=== PATIENT | female | born 1970 | race Caucasian/White ===

== ENCOUNTER 2023-03-06 22:46 | Observation (INO) ==
[2023-03-06] MEDS ORDERED: KETOROLAC TROMETHAMINE 15 MG/ML VIAL IV STA (23:03)
[2023-03-06] MEDS ORDERED: SODIUM CHLORIDE 0.9% 500 ML IV STA (23:03)
[2023-03-06] MEDS ORDERED: ONDANSETRON INJ 2 MG/ML 2 ML VIAL IV STA (23:03)
[2023-03-06 23:18] LABS: Appearance Urine Cloudy (Clear); Bacteria Urine Automated Negative (Negative); Basophils # (auto) 0.02 K/uL (0-0.2); Basophils % (auto) 0.2 %; Blood Urine 3+ (Negative); Color Urine Dark Yellow; Eosinophils # (auto) 0.01 K/uL (0-0.50); Eosinophils % (auto) 0.1 %; Epithelial Cell Urine Auto >30 /lpf (0-5); Glucose Urine UA Negative (Negative); Hematocrit (blood only) 39.4 % (37.0-47.0); Hemoglobin 13.7 g/dl (12.0-16.0); Immature Granulocytes # (auto) 0.03 K/uL (0.01-0.20); Immature Granulocytes % (auto) 0.3 %; Ketones Urine Trace (Negative); Leukocyte Esterase Urine 1+ (Negative); Lymphocytes # (auto) 1.74 K/uL (1.2-3.4); Lymphocytes % (auto) 15.1 %; Mean Corpuscular Hemoglobin 29.3 pg (25.0-34.0); Mean Corpuscular Hgb Conc 34.8 g/dL (32.0-36.0); Mean Corpuscular Volume 84.2 fL (80.0-100.0); Mean Platelet Volume 10.2 fL (9.4-12.4); Monocytes # (auto) 0.37 K/uL (0.11-0.59); Monocytes % (auto) 3.2 %; Neutrophils # (auto) 9.37 K/uL (1.40-6.50); Neutrophils % (auto) 81.1 %; Nitrite Urine Positive (Negative); Platelet Count 372 K/uL (130-400); Protein Urine 1+ (Negative); RDW Coefficient of Variation 12.9 % (11.5-14.5); RDW Standard Deviation 39.8 fL (36.4-46.3); Red Blood Count 4.68 M/uL (4.20-5.40); Specific Gravity Urine 1.018 (1.000-1.030); Urobilinogen Urine Negative (Negative); White Blood Count 11.54 K/ul (4.8-10.8); pH Urine 5.5 (4.5-7.5)
[2023-03-06 23:36] LABS: Albumin Level 4.3 gm/dl (3.4-5.0); BUN Creatinine Ratio 13.2 (10-20); Bilirubin,Total 0.8 mg/dl (0.2-1.0); Calcium 9.2 mg/dl (8.6-10.3); Creatinine Clr Calc Pharmacy 80.8 ml/min; Est GFR (African American) 84.7 ml/min; Est GFR (Non-African American) 73.1 ml/min; Globulin 4.4 gm/dl (2.5-4.0); Potassium 3.9 mmol/L (3.5-5.1); Total Protein 8.7 gm/dl (6.0-8.3)
[2023-03-06 23:37] LABS: Bilirubin Urine 3+ (Negative)
[2023-03-06 23:51] LABS: RBC Urine Automated >30 /hpf (0-4)
[2023-03-07] MEDS ORDERED: KETOROLAC TROMETHAMINE 15 MG/ML VIAL IV STA (00:59)
[2023-03-07] MEDS ORDERED: MoRPHine SULFATE 4 MG/ML 1 ML CARP\\VIAL IV STA (00:59)
[2023-03-07] MEDS ORDERED: SODIUM CHLORIDE 0.9% 1000ML 1,000 ML IV ONE (00:59)
[2023-03-07] MEDS ORDERED: ONDANSETRON INJ 2 MG/ML 2 ML VIAL IV STA (01:00)
--- NOTE | 2023-03-07 01:28 | CT Scan Report ---
Exam(s): CT ABDOMEN + PELVIS Without Contrast EXAM: CT Abdomen and Pelvis Without Intravenous Contrast CLINICAL HISTORY: Reason for exam: flank pain. TECHNIQUE: Axial computed tomography images of the abdomen and pelvis without intravenous contrast. CTDI is 8.11 mGy and DLP is 455.3 mGy-cm. Automated exposure control was utilized for the study. A dose lowering technique was utilized adhering to the principles of ALARA. COMPARISON: Dated 02/04/23 FINDINGS: Lung bases: Unremarkable. No mass. No consolidation. ABDOMEN: Liver: Unremarkable. Gallbladder and bile ducts: The patient is status post cholecystectomy. No ductal dilation. Pancreas: Unremarkable. No ductal dilation. Spleen: Unremarkable. No splenomegaly. Adrenals: Unremarkable. No mass. Kidneys and ureters: There is moderate right hydroureteronephrosis with multiple right-sided ureteral calculi including a 6 mm right mid ureteral calculus (image 52 series 2). There is a small calcification adjacent to the right UVJ which may reflect a small stone (image 89 series 2). There are additional bilateral intrarenal calculi. Stomach and bowel: The patient is status post bowel resection. No obstruction. No mucosal thickening. PELVIS: Appendix: No findings to suggest acute appendicitis. Bladder: Unremarkable. No stones. Reproductive: Unremarkable as visualized. ABDOMEN and PELVIS: Intraperitoneal space: Unremarkable. No free air. No significant fluid collection. Bones/joints: There are degenerative changes of the thoracolumbar spine. No acute fracture. No dislocation. Soft tissues: Unremarkable. Vasculature: Unremarkable. No abdominal aortic aneurysm. Lymph nodes: Unremarkable. No enlarged lymph nodes. IMPRESSION: Moderate right hydroureteronephrosis with multiple right-sided ureteral calculi. Suspected small obstructing calculus at the right UVJ. Electronically signed by: Edmar Jones MD 03/07/23 01:26 AM
--- NOTE | 2023-03-07 02:12 | Emergency Department Note ---
Impression & Plan Hydronephrosis due to obstruction of ureter, Ureterolithiasis, Right flank pain, Status post laser lithotripsy of ureteral calculus ED Provider Note NAME: ISSAC TOVAR AGE: 52 SEX: F ARRIVES VIA: Walk-In INFORMANT: Patient ED PROVIDER(S): Stu Sandy MD CHIEF COMPLAINT: Right flank pain PLAN: Disposition: Admit MEDICAL DECISION MAKING: The patient is a pleasant 52-year-old woman with a past medical history of nephrolithiasis who presents to the emergency department via walk-in, accompanied by her for evaluation of worsening right flank pain with associated nausea and vomiting in the setting of having lithotripsy for right- sided nephrolithiasis today. She reports she has been taking her prescribed oxycodone but because of the nausea and vomiting has not been able to keep it down. She denies any fevers. She denies any cough, congestion, diarrhea. She did contact her urology office and was referred to the emergency department for pain control. Of note, the patient did arrive to emergency department during time of high volume, acuity and prolonged emergency department waiting times. Critical pathways initiated from triage. On my evaluation, the patient is uncomfortable no acute distress, afebrile with stable vital signs. She has mild right flank and right abdominal discomfort without discrete tenderness. WBC 11.5K nonspecific. H/H and platelets within normal limits. Chemistry without metabolic acidosis per electrolytes and LFTs unremarkable. UA with positive nitrates, 1+ leuk esterase and 5-10 WBCs and RBCs> [address] of the abdomen pelvis was performed demonstrated right-sided hydronephrosis with numerous ureteral stones. Upon evaluation the patient did report improvement following IV fluid hydration, APAP, Toradol, morphine and Zofran. However still with pain persisting and given the severity of her pain on arrival in the setting of numerous obstructing ureteral stones agrees with plan for admission for further symptomatic management. While patient's UA is contaminated she was ordered for ceftriaxone given presence of nitrites and in the event procedure is considered for tomorrow. Case was discussed with Dr. Vidal, [facility] hospitalist, who will evaluate the patient for admission. Triage Nursing notes reviewed and agree them. Prior/outside medical records reviewed Vital Signs: reviewed Differential diagnosis: Renal colic, UTI, appendicitis, diverticulitis, mesenteric ischemia, aortic pathology, infections, inflammatory bowel disease, PUD, biliary pathology, as well as other pathologies. ER treatment provided: See below. Diagnostics interpreted by me: ECG: None Cardiac Monitoring: An order for continuous cardiac monitoring was placed and demonstrated Laboratory studies: See below Imaging studies: See below Consultation(s): Dr. Vidal, [facility] hospitalist. HPI: The patient is a pleasant 52-year-old woman with a past medical history of nephrolithiasis who presents to the emergency department via walk-in, accompanied by her for evaluation of worsening right flank pain with associated nausea and vomiting in the setting of having lithotripsy for right- sided nephrolithiasis today. She reports she has been taking her prescribed oxycodone but because of the nausea and vomiting has not been able to keep it down. She denies any fevers. She denies any cough, congestion, diarrhea. She did contact her urology office and was referred to the emergency department for pain control. ROS: See above HPI for pertinent positives & negatives. A total of 10 systems r eviewed and were otherwise negative. VITALS:See Below PHYSICAL EXAMINATION: GENERAL: Awake, alert, uncomfortable-appearing, in no distress HENT: Normocephalic, atraumatic. Oropharynx with dry mucous membranes and otherwise unremarkable. EYES: Normal conjunctiva. Sclera non-icteric. NECK: Supple. No nuchal rigidity. FROM. No JVD. RESPIRATORY: Clear to auscultation. CARDIAC: Regular rate, normal rhythm. Extremities warm and well perfused. Pulses equal. ABDOMEN: Soft, non-distended. Mild right flank and right abdominal discomfort without discrete tenderness. No rebound or guarding. No masses. RECTAL: Deferred. MUSCULOSKELETAL: Chest examination reveals no tenderness. The back is symmetrical on inspection without obvious abnormality. There is no CVA tenderness to palpation. No joint edema. LOWER EXTREMITIES: Calves are equal size bilaterally and non-tender. No edema. No discoloration. NEURO: Normal sensorium. No sensory or motor deficits noted. SKIN: No rash or jaundice noted. Stu Sandy MD Past Med/Surg History Medical History Anemia IRON INFUSIONS>LAST ONE FALL 2021 Crohn's disease GERD (gastroesophageal reflux disease) History of COVID-19 2019>RESOLVED Hx of supraventricular tachycardia EVENT OCCURED 05/2022 (NO SURGICAL INTERVENTION NEEDED) [facility] CARDS AND [facility] Kidney stones Surgical History History of appendectomy History of bilateral tubal ligation History of bowel resection X 4 History of cardiac cath A FEW YEARS AGO>NO STENTS/[facility] History of cholecystectomy History of colonoscopy History of cystoscopy History of lithotripsy Nausea and vomiting after administration of anesthetic agent Social History Smoking Status: Never smoker Second Hand Exposure: No; Hx Alcohol Use: Yes Preferred Language: Pashto Registered Veterinary Technician Required: No Beliefs That Will Affect Care: Yarsani Yarsani Beliefs: MUSLIM Current Living Situation: Spouse Feels Safe at Home: Yes Assistive Devices: None Allergies Allergies Allergy/AdvReac Type Severity Reaction Status Date / Time morphine AdvReac Severe CAUSED Verified 03/07/23 00:33 SEVERE ANXIETY Home Meds Home Medications Medication Instructions Recorded Confirmed cetirizine 10 mg tablet (Zyrtec) 10 mg PO HS 03/04/23 03/07/23 infliximab 100 mg intravenous 100 mg IV .Q6WKS 03/04/23 03/07/23 solution (Remicade) metoprolol succinate 25 mg 25 mg PO HS 03/04/23 03/07/23 tablet,extended release 24 hr Previous Rx's Medication Instructions Recorded oxycodone 5 mg tablet 5 mg PO Q6 PRN pain #8 tabs 03/06/23 tamsulosin 0.4 mg capsule 0.4 mg PO DAILY #30 caps 03/06/23 Results & Data (ED) Vital Signs Vital Signs - 24 hr 03/06/23 22:53 03/07/23 00:15 Temperature 36.5 C Temperature Source Temporal Artery Scan Pulse Rate 86 Pulse Rate [Apical] 83 Respiratory Rate 18 18 Respiratory Effort / Characteristics Non-Labored Spontaneous Respiratory Depth Normal Respiratory Pattern Regular Blood Pressure 146/83 H Blood Pressure [Right Arm] 126/80 Blood Pressure Mean 104 Blood Pressure Mean [Right Arm] 95 Blood Pressure Position Sitting Blood Pressure Position [Right Arm] Semi-fowlers Pulse Oximetry 96 93 Oxygen Delivery Method Room Air Sepsis Recent Fever Within 48 Hours No Sepsis New/Unexplained Change in Mental Status N/A Sepsis Action Taken by Nursing No Action Required Laboratory Data Attestation: I reviewed the patient's lab results. 03/06/23 23:02 03/06/23 23:02 Lab Results 03/06/23 03/06/23 03/06/23 Range/Units 23:02 23:02 23:02 WBC 11.54 H (4.8-10.8) K/ul RBC 4.68 (4.20-5.40) M/uL Hgb 13.7 (12.0-16.0) g/dl Hct 39.4 (37.0-47.0) % MCV 84.2 (80.0-100.0) fL MCH 29.3 (25.0-34.0) pg MCHC 34.8 (32.0-36.0) g/dL RDW Std Deviation 39.8 (36.4-46.3) fL RDW Coeff of Wei 12.9 (11.5-14.5) % Plt Count 372 (130-400) K/uL MPV 10.2 (9.4-12.4) fL Immature Gran % (Auto) 0.3 % Neut % (Auto) 81.1 % Lymph % (Auto) 15.1 % [place] % (Auto) 3.2 % Eos % (Auto) 0.1 % Baso % (Auto) 0.2 % Neut # (Auto) 9.37 H (1.40-6.50) K/uL Lymph # (Auto) 1.74 (1.2-3.4) K/uL Stafford # (Auto) 0.37 (0.11-0.59) K/uL Eos # (Auto) 0.01 (0-0.50) K/uL Baso # (Auto) 0.02 (0-0.2) K/uL Immature Gran # (Auto) 0.03 (0.01-0.20) K/uL Sodium 134 L (136-145) mmol/L Potassium 3.9 (3.5-5.1) mmol/L Chloride 104 (98-107) mmol/L Carbon Dioxide 23 (21-32) mmol/L Anion Gap 7 (3-11) BUN 12 (6-23) mg/dl Creatinine 0.91 (0.6-1.2) mg/dl Est Cr Clr Drug Dosing 80.8 ml/min Est GFR ( Amer) 84.7 ml/min Est GFR (Non-Af Amer) 73.1 ml/min BUN/Creatinine Ratio 13.2 (10-20) Glucose 108 H (70-99(Fasting)) mg/dl Calcium 9.2 (8.6-10.3) mg/dl Total Bilirubin 0.8 (0.2-1.0) mg/dl AST 20 (13-39) U/L ALT 21 (7-52) U/L Alkaline Phosphatase 69 (34-104) U/L Total Protein 8.7 H (6.0-8.3) gm/dl Albumin 4.3 (3.4-5.0) gm/dl Globulin 4.4 H (2.5-4.0) gm/dl Albumin/Globulin Ratio 1.0 (0.9-2) Urine Color Dark Yellow Urine Appearance Cloudy A (Clear) Urine pH 5.5 (4.5-7.5) Ur Specific [place] 1.018 (1.000-1.030) Urine Protein 1+ H (Negative) Urine Glucose (UA) Negative (Negative) Urine Ketones Trace H (Negative) Urine Blood 3+ H (Negative) Urine Nitrite Positive A (Negative) Urine Bilirubin 3+ H (Negative) Urine Urobilinogen Negative (Negative) Ur Leukocyte Esterase 1+ H (Negative) Urine WBC (Auto) 5-10 H (0-5) /hpf Urine RBC (Auto) >30 H (0-4) /hpf U Hyaline Cast (Auto) 1-5 (0-5) /lpf U Epithel Cells (Auto) >30 H (0-5) /lpf Urine Bacteria (Auto) Negative (Negative) Urine Yeast Not Reportable Administered Medications Discontinued Medications Sodium Chloride (Nss) 500 mls @ 999 mls/hr IV .Q31M STA Stop: 03/06/23 23:33 Last Infusion: 03/07/23 00:48 Dose: 0 mls/hr Documented By: Admin: 03/07/23 00:17 Dose: 999 mls/hr Documented By: Sodium Chloride (Nss 1000ml) 1,000 mls @ 999 mls/hr IV .Q1H1M ONE Stop: 03/07/23 01:59 Last Admin: 03/07/23 01:15 Dose: 999 mls/hr Documented By: Ketorolac Tromethamine (Ketorolac Tromethamine 15 Mg/Ml Vial) 15 mg IV ONE STA Stop: 03/06/23 23:04 Last Admin: 03/06/23 23:15 Dose: Not Given Documented By: RADHA Ketorolac Tromethamine (Ketorolac Tromethamine 15 Mg/Ml Vial) 15 mg IV NOW STA Stop: 03/07/23 01:00 Last Admin: 03/07/23 01:17 Dose: 15 mg Documented By: Ondansetron HCl (Ondansetron Inj 2 Mg/Ml 2 Ml Vial) 4 mg IV NOW STA Stop: 03/06/23 23:04 Last Admin: 03/06/23 23:11 Dose: 4 mg Documented By: RADHA Ondansetron HCl (Ondansetron Inj 2 Mg/Ml 2 Ml Vial) 4 mg IV NOW STA Stop: 03/07/23 01:01 Last Admin: 03/07/23 01:18 Dose: 4 mg Documented By: Imaging Data Radiologist's Impression: Abdomen/Pelvis CT 03/06/23 23:14 Exam(s): CT ABDOMEN + PELVIS Without Contrast EXAM: CT Abdomen and Pelvis Without Intravenous Contrast CLINICAL HISTORY: Reason for exam: flank pain. TECHNIQUE: Axial computed tomography images of the abdomen and pelvis without intravenous contrast. CTDI is 8.11 mGy and DLP is 455.3 mGy-cm. Automated exposure control was utilized for the study. A dose lowering technique was utilized adhering to the principles of ALARA. COMPARISON: Dated 02/04/23 FINDINGS: Lung bases: Unremarkable. No mass. No consolidation. ABDOMEN: Liver: Unremarkable. Gallbladder and bile ducts: The patient is status post cholecystectomy. No ductal dilation. Pancreas: Unremarkable. No ductal dilation. Spleen: Unremarkable. No splenomegaly. Adrenals: Unremarkable. No mass. Kidneys and ureters: There is moderate right hydroureteronephrosis with multiple right-sided ureteral calculi including a 6 mm right mid ureteral calculus (image 52 series 2). There is a small calcification adjacent to the right UVJ which may reflect a small stone (image 89 series 2). There are additional bilateral intrarenal calculi. Stomach and bowel: The patient is status post bowel resection. No obstruction. No mucosal thickening. PELVIS: Appendix: No findings to suggest acute appendicitis. Bladder: Unremarkable. No stones. Reproductive: Unremarkable as visualized. ABDOMEN and PELVIS: Intraperitoneal space: Unremarkable. No free air. No significant fluid collection. Bones/joints: There are degenerative changes of the thoracolumbar spine. No acute fracture. No dislocation. Soft tissues: Unremarkable. Vasculature: Unremarkable. No abdominal aortic aneurysm. Lymph nodes: Unremarkable. No enlarged lymph nodes. IMPRESSION: Moderate right hydroureteronephrosis with multiple right-sided ureteral calculi. Suspected small obstructing calculus at the right UVJ. Electronically signed by: Edmar Jones MD 03/07/23 01:26 AM Discharge Plan Visit Data Chief Complaint: Flank Pain Stated Complaint: R SIDE ABDOMINAL PAIN ED Provider: Stu Sandy Discharge Problem: Hydronephrosis due to obstruction of ureter, Ureterolithiasis, Right flank pain, Status post laser lithotripsy of ureteral calculus Forms Stand Alone Forms: [facility] [email or web address] Prescriptions Prescriptions: No Action cetirizine [Zyrtec] 10 mg Tablet 10 mg PO HS infliximab [Remicade] 100 mg Recon Soln 100 mg IV .Q6WKS Patient Comments: EVERY 6 WEEKS metoprolol succinate 25 mg Tablet Extended Release 24 Hr 25 mg PO HS tamsulosin 0.4 mg capsule 0.4 mg PO DAILY Qty: 30 0RF oxycodone 5 mg tablet 5 mg PO Q6 PRN (Reason: pain) Qty: 8 0RF Referrals Referrals: Марина Cruz [Primary Care Provider] -
[2023-03-07] MEDS ORDERED: MoRPHine SULFATE 4 MG/ML 1 ML CARP\\VIAL IV PRN (02:18)
[2023-03-07] MEDS ORDERED: MoRPHine SULFATE 2 MG/ML CARP IV PRN (02:18)
[2023-03-07] MEDS ORDERED: ONDANSETRON INJ 2 MG/ML 2 ML VIAL IV PRN ×2 (02:18→04:35)
[2023-03-07] MEDS ORDERED: cefTRIAXone SODIUM 2,000 MG/70 ML BAG IV STA (02:20)
[2023-03-07] MEDS ORDERED: TAMSULOSIN HCL 0.4 MG CAP PO ONE (02:20)
[2023-03-07] MEDS ORDERED: SODIUM CHLORIDE 0.9% 1000ML 1,000 ML IV SCH ×2 (02:30→05:15)
[2023-03-07] MEDS ORDERED: LACTATED RINGER'S 1,000 ML IV SCH (02:30)
--- NOTE | 2023-03-07 03:40 | History & Physical Report ---
Date of Service March 07, 2023 Assessment & Plan (1) Hydronephrosis due to obstruction of ureter: Plan: 52yo female with history of Crohn's disease, nephrolithiasis s/p right sided ESWL performed 03/06/23 presenting with intractable nausea, pain and PO intolerance. Patient unable to control her pain at home with PO Oxycodone. CT as above with moderate right sided hydroureteronephrosis with multiple right- sided ureteral calculi. Suspected small obstructing calculus at the right UVJ. UA with LE, no bacteria. Nitrites positive as well. -Admit to medical -Dilaudid PRN -Toradol PRN -Zofran PRN -Continue IVF -Strain urine, continue Flomax -Ceftriaxone 2gm IV daily -Urology consultation appreciated History of Present Illness Chief Complaint: Right flank pain Primary Care Provider: Марина Cruz Jolly Martinez is a pleasant 52yo female with history of Crohn's Disease, kidney stones presenting with ongoing right flank pain, nausea and vomiting. Patient with known right sided nephrolithiasis. She had right extracorporeal shock wave lithotripsy performed on 03/06/[address] Carlisle. The procedure was well tolerated. Patient was discharged home with Flomax and Oxycodone. She reports persistent right flank pain since having the procedure. Also with nausea and non-bloody emesis. She took 3 oxycodone tablets at home with no relief. Patient contacted Urology demonstrator sales and was instructed to come to the ER for continued pain control due to PO intolerance. In the ER she is afebrile, HD stable. Significant pain on arrival. She was given doses of Toradol and Zofran as well as IV fluids. Pain much improved during my encounter. She reports 3/10 discomfort. Nausea has resolved. ER Course: Zofran 4mg IV x 2 Toradol 15mg IV NSS Flomax Ceftriaxone Allergies Allergy/AdvReac Type Severity Reaction Status Date / Time morphine AdvReac Severe CAUSED Verified 03/07/23 00:33 SEVERE ANXIETY Home Medications Medication Instructions Recorded Confirmed Type cetirizine 10 mg tablet (Zyrtec) 10 mg PO HS 03/04/23 03/07/23 History infliximab 100 mg intravenous 100 mg IV .Q6WKS 03/04/23 03/07/23 History solution (Remicade) metoprolol succinate 25 mg 25 mg PO HS 03/04/23 03/07/23 History tablet,extended release 24 hr oxycodone 5 mg tablet 5 mg PO Q6 PRN pain #8 tabs 03/06/23 03/07/23 Rx tamsulosin 0.4 mg capsule 0.4 mg PO DAILY #30 caps 03/06/23 03/07/23 Rx Past Med/Surg History Medical History Anemia IRON INFUSIONS>LAST ONE FALL 2021 Crohn's disease GERD (gastroesophageal reflux disease) History of COVID-19 2019>RESOLVED Hx of supraventricular tachycardia EVENT OCCURED 05/2022 (NO SURGICAL INTERVENTION NEEDED) [facility] Kidney stones Surgical History History of appendectomy History of bilateral tubal ligation History of bowel resection X 4 History of cardiac cath A FEW YEARS AGO>NO STENTS/[facility] [place] History of cholecystectomy History of colonoscopy History of cystoscopy History of lithotripsy Nausea and vomiting after administration of anesthetic agent Social History Smoking Status: Never smoker Second Hand Exposure: No; Hx Alcohol Use: Yes Preferred Language: Nauruan Interface Analyst Required: No Beliefs That Will Affect Care: Mu-Ism Mu-Ism Beliefs: EPISCOPALIAN Current Living Situation: Spouse Feels Safe at Home: Yes Assistive Devices: None Review of Systems Review of Systems: All systems reviewed & are unremarkable except as noted in HPI & below Physical Exam Physical Exam: General: patient resting comfortably, NAD, non-toxic in appearance, AA&O x 4 Skin: warm, dry, intact, no rashes or lesions HEENT: NC/AT, PERRL, EOMI, anicteric sclera, conjunctiva without injection, external ear normal to inspection and nontender, nares patent, moist mucus membranes, dentition intact, no oropharyngeal lesions, neck supple, trachea midline, no LAD, no thyromegaly, no JVD Heart: +S1/S2, regular, no m/r/g Lungs: equal air entry bilaterally, no rales/rhonchi/wheezes Abd: +BS, soft, NT/ND, no masses/organomegaly/ascites, ongoing right flank pain and CVA tenderness Ext: warm, 2+ pulses in UE/LE bilaterally, no clubbing/cyanosis or edema Neuro: nonfocal, patient AA&O x 4, speech intact, no facial droop, moving all extremities on command with equal strength 5/5 Results & Data Results & Data Vital Signs (Past 12 Hours) Vital Signs Temp Pulse Pulse Resp BP BP Pulse Ox 03/07/23 03:08 77 18 120/71 95 03/07/23 00:15 83 18 126/80 93 03/06/23 22:53 36.5 C 86 18 146/83 H 96 O2 Del Method 03/07/23 03:08 Room Air 03/07/23 00:15 03/06/23 22:53 Room Air Laboratory Results Laboratory Results WBC 11.54 K/ul (4.8-10.8) H 03/06/23 23:02 RBC 4.68 M/uL (4.20-5.40) 03/06/23 23:02 Hgb 13.7 g/dl (12.0-16.0) 03/06/23 23:02 Hct 39.4 % (37.0-47.0) 03/06/23 23:02 MCV 84.2 fL (80.0-100.0) 03/06/23 23:02 MCH 29.3 pg (25.0-34.0) 03/06/23 23:02 MCHC 34.8 g/dL (32.0-36.0) 03/06/23 23:02 RDW Std Deviation 39.8 fL (36.4-46.3) 03/06/23 23:02 RDW Coeff of Wei 12.9 % (11.5-14.5) 03/06/23 23: Plt Count 372 K/uL (130-400) 03/06/23 23:02 MPV 10.2 fL (9.4-12.4) 03/06/23 23:02 Immature Gran % (Auto) 0.3 % 03/06/23 23:02 Neut % (Auto) 81.1 % 03/06/23 23:02 Lymph % (Auto) 15.1 % 03/06/23 23:02 [place] % (Auto) 3.2 % 03/06/23 23:02 Eos % (Auto) 0.1 % 03/06/23 23:02 Baso % (Auto) 0.2 % 03/06/23 23:02 Neut # (Auto) 9.37 K/uL (1.40-6.50) H 03/06/23 23:02 Lymph # (Auto) 1.74 K/uL (1.2-3.4) 03/06/23 23:02 [place] # (Auto) 0.37 K/uL (0.11-0.59) 03/06/23 23:02 Eos # (Auto) 0.01 K/uL (0-0.50) 03/06/23 23:02 Baso # (Auto) 0.02 K/uL (0-0.2) 03/06/23 23:02 Immature Gran # (Auto) 0.03 K/uL (0.01-0.20) 03/06/23 23:02 Sodium 134 mmol/L (136-145) L 03/06/23 23:02 Potassium 3.9 mmol/L (3.5-5.1) 03/06/23 23:02 Chloride 104 mmol/L (98-107) 03/06/23 23:02 Carbon Dioxide 23 mmol/L (21-32) 03/06/23 23:02 Anion Gap 7 (3-11) 03/06/23 23:02 BUN 12 mg/dl (6-23) 03/06/23 23:02 Creatinine 0.91 mg/dl (0.6-1.2) 03/06/23 23:02 Est Cr Clr Drug Dosing 80.8 ml/min 03/06/23 23:02 Est GFR ( Amer) 84.7 ml/min 03/06/23 23:02 Est GFR (Non-Af Amer) 73.1 ml/min 03/06/23 23:02 BUN/Creatinine Ratio 13.2 (10-20) 03/06/23 23:02 Glucose 108 mg/dl (70-99(Fasting)) H 03/06/23 23:02 Calcium 9.2 mg/dl (8.6-10.3) 03/06/23 23:02 Total Bilirubin 0.8 mg/dl (0.2-1.0) 03/06/23 23:02 AST 20 U/L (13-39) 03/06/23 23:02 ALT 21 U/L (7-52) 03/06/23 23:02 Alkaline Phosphatase 69 U/L (34-104) 03/06/23 23:02 Total Protein 8.7 gm/dl (6.0-8.3) H 03/06/23 23:02 Albumin 4.3 gm/dl (3.4-5.0) 03/06/23 23:02 Globulin 4.4 gm/dl (2.5-4.0) H 03/06/23 23:02 Albumin/Globulin Ratio 1.0 (0.9-2) 03/06/23 23:02 Urine Color Dark Yellow 03/06/23 23:02 Urine Appearance Cloudy (Clear) A 03/06/23 23:02 Urine pH 5.5 (4.5-7.5) 03/06/23 23:02 Ur Specific [place] 1.018 (1.000-1.030) 03/06/23 23:02 Urine Protein 1+ (Negative) H 03/06/23 23:02 Urine Glucose (UA) Negative (Negative) 03/06/23 23:02 Urine Ketones Trace (Negative) H 03/06/23 23:02 Urine Blood 3+ (Negative) H 03/06/23 23:02 Urine Nitrite Positive (Negative) A 03/06/23 23:02 Urine Bilirubin 3+ (Negative) H 03/06/23 23:02 Urine Urobilinogen Negative (Negative) 03/06/23 23:02 Ur Leukocyte Esterase 1+ (Negative) H 03/06/23 23:02 Urine WBC (Auto) 5-10 /hpf (0-5) H 03/06/23 23:02 Urine RBC (Auto) >30 /hpf (0-4) H 03/06/23 23:02 U Hyaline Cast (Auto) 1-5 /lpf (0-5) 03/06/23 23:02 U Epithel Cells (Auto) >30 /lpf (0-5) H 03/06/23 23:02 Urine Bacteria (Auto) Negative (Negative) 03/06/23 23:02 Urine Yeast Not Reportable 03/06/23 23:02 SARS-CoV-2, RNA, NAAT NEGATIVE (NEGATIVE) 03/07/23 03:10 Impressions Abdomen/Pelvis CT 03/06/23 23:14 Exam(s): CT ABDOMEN + PELVIS Without Contrast EXAM: CT Abdomen and Pelvis Without Intravenous Contrast CLINICAL HISTORY: Reason for exam: flank pain. TECHNIQUE: Axial computed tomography images of the abdomen and pelvis without intravenous contrast. CTDI is 8.11 mGy and DLP is 455.3 mGy-cm. Automated exposure control was utilized for the study. A dose lowering technique was utilized adhering to the principles of ALARA. COMPARISON: Dated 02/04/23 FINDINGS: Lung bases: Unremarkable. No mass. No consolidation. ABDOMEN: Liver: Unremarkable. Gallbladder and bile ducts: The patient is status post cholecystectomy. No ductal dilation. Pancreas: Unremarkable. No ductal dilation. Spleen: Unremarkable. No splenomegaly. Adrenals: Unremarkable. No mass. Kidneys and ureters: There is moderate right hydroureteronephrosis with multiple right-sided ureteral calculi including a 6 mm right mid ureteral calculus (image 52 series 2). There is a small calcification adjacent to the right UVJ which may reflect a small stone (image 89 series 2). There are additional bilateral intrarenal calculi. Stomach and bowel: The patient is status post bowel resection. No obstruction. No mucosal thickening. PELVIS: Appendix: No findings to suggest acute appendicitis. Bladder: Unremarkable. No stones. Reproductive: Unremarkable as visualized. ABDOMEN and PELVIS: Intraperitoneal space: Unremarkable. No free air. No significant fluid collection. Bones/joints: There are degenerative changes of the thoracolumbar spine. No acute fracture. No dislocation. Soft tissues: Unremarkable. Vasculature: Unremarkable. No abdominal aortic aneurysm. Lymph nodes: Unremarkable. No enlarged lymph nodes. IMPRESSION: Moderate right hydroureteronephrosis with multiple right-sided ureteral calculi. Suspected small obstructing calculus at the right UVJ. Electronically signed by: Edmar Jones MD 03/07/23 01:26 AM Code Status & VTE Plan VTE Prophylaxis Plan VTE Prophylaxis will be ordered: Yes PG Care Time/CCT Total # of Minutes Spent Total Time Spent with Patient: Total time spent is greater than 50% in coordination of care (as documented) at patient's floor/unit and/or counseling patient: Coding Level of Care Code 26147 INT INP/OBS CARE 2/55MIN Diagnoses Hydronephrosis due to obstruction of ureter N13.1
[2023-03-07] MEDS ORDERED: POLYETHYLENE (MIRALAX) 17 GM PACK PO PRN (04:35)
[2023-03-07] MEDS ORDERED: DOCUSATE SODIUM 100 MG CAP PO PRN (04:35)
[2023-03-07] MEDS ORDERED: ACETAMINOPHEN 325 MG TAB PO PRN (04:35)
[2023-03-07] MEDS ORDERED: HYDROmorphone INJ 0.5 MG/0.5 ML SYR IV PRN ×2 (04:35)
[2023-03-07] MEDS ORDERED: KETOROLAC TROMETHAMINE 15 MG/ML VIAL IV PRN (04:35)
--- NOTE | 2023-03-07 07:18 | Urology Consultation ---
Date of Consultation March 07, 2023 Assessment & Plan (1) Hydronephrosis due to obstruction of ureter: (2) Ureterolithiasis: (3) Right flank pain: Plan 52 yo F who is s/p right ESWL on 03/06/23. She developed several right obstructing ureteral caculi and presented to the hospital due to flank pain and nausea/vomiting. Recommended we proceed to the OR for cystoscopy, right retrograde pyelogram and right ureteral stent placement due to obstructing stones, intractable pain and nausea and urinalysis concerning for infection. Patient's pain is improved and was hoping to avoid a stent placement but I explained that given her clinical picture a stent is the safest thing to do Please keep patient NPO. OR would likely not be available until after 12 PM Continue antibiotics Risks and benefits discussed and consent obtained. Patient marked If patient is doing well postoperatively, she could be discharged home later today History of Present Illness Reason for Consultation: Right obstructing ureteral calculi Attending Physician: Jenifer Vidal DO History of Present Illness 52 yo F who is s/p right ESWL for stones on 03/06/23 who presented to the ED with right flank pain and nausea. She was afebrile with stable vitals. Labs showed a WBC of 11, Cr of 0.91, and a UA concerning for infection. CT scan showed right hydronephrosis with several right proximal obstructing ureteral calculi. She was admitted to the medicine service and started on ceftriaxone. Allergies Allergy/AdvReac Type Severity Reaction Status Date / Time morphine AdvReac Severe CAUSED Verified 03/07/23 00:33 SEVERE ANXIETY Home Medications Medication Instructions Recorded Confirmed Type cetirizine 10 mg tablet (Zyrtec) 10 mg PO HS 03/04/23 03/07/23 History infliximab 100 mg intravenous 100 mg IV .Q6WKS 03/04/23 03/07/23 History solution (Remicade) metoprolol succinate 25 mg 25 mg PO HS 03/04/23 03/07/23 History tablet,extended release 24 hr oxycodone 5 mg tablet 5 mg PO Q6 PRN pain #8 tabs 03/06/23 03/07/23 Rx tamsulosin 0.4 mg capsule 0.4 mg PO DAILY #30 caps 03/06/23 03/07/23 Rx Patient History Medical History Anemia IRON INFUSIONS>LAST ONE FALL 2021 Crohn's disease GERD (gastroesophageal reflux disease) History of COVID-19 2019>RESOLVED Hx of supraventricular tachycardia EVENT OCCURED 05/2022 (NO SURGICAL INTERVENTION NEEDED) [facility] AND [facility] Kidney stones Surgical History History of appendectomy History of bilateral tubal ligation History of bowel resection X 4 History of cardiac cath A FEW YEARS AGO>NO STENTS/[facility] History of cholecystectomy History of colonoscopy History of cystoscopy History of lithotripsy Nausea and vomiting after administration of anesthetic agent Social History Smoking Status: Never smoker Second Hand Exposure: No; Hx Alcohol Use: Yes Alcohol type: beer, wine and hard liquor Hx Substance Use: No Preferred Language: Cypriot Communication Ability: Effective General Cleaner Required: No Beliefs That Will Affect Care: None Current Living Situation: Spouse Feels Safe at Home: Yes Assistive Devices: None Review of Systems Review of Systems: 14 point review of systems negative outside of what is listed above in HPI Physical Exam Physical Exam: General: Alert and oriented, no acute distress HEENT: Normocephalic, mucous membranes moist Pulmonary: Nonlabored respirations Abdomen: Nondistended Extremities: Moves all 4 spontaneously Neuro: No gross deficits Skin: Warm, dry, no rashes noted Results & Data Vital Signs (Past 12 Hours) Vital Signs Temp Pulse Pulse Pulse Resp BP BP 03/07/23 07:08 36.3 C L 84 16 106/68 03/07/23 04:30 36.6 C 84 16 114/73 03/07/23 04:17 03/07/23 03:08 77 18 120/71 03/07/23 00:15 83 18 126/80 03/06/23 22:53 36.5 C 86 18 146/83 H Pulse Ox O2 Del Method 03/07/23 07:08 94 Room Air 03/07/23 04:30 93 Room Air 03/07/23 04:17 Room Air 03/07/23 03:08 95 Room Air 03/07/23 00:15 93 03/06/23 22:53 96 Room Air PG Care Time/CCT Total # of Minutes Spent Total Time Spent with Patient: Total time spent is greater than 50% in coordination of care (as documented) at patient's floor/unit and/or counseling patient: Coding Level of Care Code 43599 IN/OBS CONSULT LVL 3,45M Diagnoses Hydronephrosis due to obstruction of ureter N13.1 Ureterolithiasis N20.1 Right flank pain R10.9
[2023-03-07] MEDS ORDERED: ATROPINE SULFATE 0.1 MG/ML 10ML SYR IV PRN (12:15)
[2023-03-07] MEDS ORDERED: fentaNYL citrate PF 100 MCG/2 ML VIAL IV PRN (12:15)
[2023-03-07] MEDS ORDERED: PROMETHAZINE HCL 6.25 MG in SODIUM CHLORIDE 0.9% 50 ML IV PRN (12:15)
--- NOTE | 2023-03-07 12:15 | Anesthesiology Consultation ---
Date of Service March 07, 2023 Assessment & Plan (1) Encounter for pre-operative examination: Chart Review Chart Review: Acceptable Risk for Surgery History Surgery Operation Date: 03/07/23 12:00 Proposed Procedures p Cystoscopy Retrograde(Right) - Domenic Gill MD Height/Weight Height: 5 ft 7 in Weight: 82.8 kg Allergies Allergy/AdvReac Type Severity Reaction Status Date / Time morphine AdvReac Severe CAUSED Verified 03/07/23 00:33 SEVERE ANXIETY Medications Home Medications Medication Instructions Recorded Confirmed Last Taken cetirizine 10 mg tablet (Zyrtec) 10 mg PO HS 03/04/23 03/07/23 03/06/23 infliximab 100 mg intravenous 100 mg IV .Q6WKS 03/04/23 03/07/23 Unknown solution (Remicade) metoprolol succinate 25 mg 25 mg PO HS 03/04/23 03/07/23 03/06/23 tablet,extended release 24 hr oxycodone 5 mg tablet 5 mg PO Q6 PRN pain #8 tabs 03/06/23 03/07/23 Unknown tamsulosin 0.4 mg capsule 0.4 mg PO DAILY #30 caps 03/06/23 03/07/23 03/06/23 Active Medications Generic Name Dose Route Start Last Admin Trade Name Freq PRN Reason Stop Dose Admin Sodium Chloride 1,000 mls @ 125 mls/hr 03/07/23 05:15 03/07/23 05:41 Nss 1000ml IV 03/07/23 21:14 125 mls/hr .Q8H LOR Administration Past Medical History Medical History Anemia IRON INFUSIONS>LAST ONE FALL 2021 Crohn's disease GERD (gastroesophageal reflux disease) History of COVID-2019>RESOLVED Hx of supraventricular tachycardia EVENT OCCURED 05/2022 (NO SURGICAL INTERVENTION NEEDED) [facility] Kidney stones Past Surgical History Surgical History History of appendectomy History of bilateral tubal ligation History of bowel resection X 4 History of cardiac cath A FEW YEARS AGO>NO STENTS/[facility] History of cholecystectomy History of colonoscopy History of cystoscopy History of lithotripsy Nausea and vomiting after administration of anesthetic agent Social History Smoking Status: Never smoker Hx Alcohol Use: Yes Alcohol type: beer, wine and hard liquor alcohol intake frequency: a few times a month Hx Substance Use: No substance use type: does not use Physical Exam Vital Signs Last Vital Signs Temp 36.3 C L 03/07/23 07:08 Pulse 84 03/07/23 07:08 Resp 16 03/07/23 07:08 BP 106/68 03/07/23 07:08 Pulse Ox 94 03/07/23 07:08 O2 Del Method Room Air 03/07/23 10:40 Testing Laboratory Results 03/06/23 23:02 03/06/23 23:02 Urine Color Dark Yellow 03/06/23 23:02 Urine Appearance Cloudy (Clear) A 03/06/23 23:02 Urine pH 5.5 (4.5-7.5) 03/06/23 23:02 Ur Specific [place] 1.018 (1.000-1.030) 03/06/23 23:02 Urine Protein 1+ (Negative) H 03/06/23 23:02 Urine Glucose (UA) Negative (Negative) 03/06/23 23:02 Urine Ketones Trace (Negative) H 03/06/23 23:02 Urine Nitrite Positive (Negative) A 03/06/23 23:02 Ur Leukocyte Esterase 1+ (Negative) H 03/06/23 23:02 Urine WBC (Auto) 5-10 /hpf (0-5) H 03/06/23 23:02 Urine RBC (Auto) >30 /hpf (0-4) H 03/06/23 23:02 U Hyaline Cast (Auto) 1-5 /lpf (0-5) 03/06/23 23:02 U Epithel Cells (Auto) >30 /lpf (0-5) H 03/06/23 23:02 Urine Bacteria (Auto) Negative (Negative) 03/06/23 23:02
[2023-03-07] MEDS ORDERED: MIDAZOLAM HCL 1 MG/ML 2ML VIAL ONE (12:54)
[2023-03-07] MEDS ORDERED: fentaNYL citrate PF 100 MCG/2 ML VIAL ONE (12:55)
[2023-03-07] MEDS ORDERED: LIDOCAINE 2% MPF LOCAL 5 ML VIAL ONE (12:58)
[2023-03-07] MEDS ORDERED: ONDANSETRON INJ 2 MG/ML 2 ML VIAL ONE (12:59)
[2023-03-07] MEDS ORDERED: PROPOFOL IV EMULSION 10 MG/ML 20 ML VIAL IV ONE (12:59)
[2023-03-07] MEDS ORDERED: DEXAMETHASONE SOD INJ 4 MG/ML VIAL ONE (12:59)
[2023-03-07] MEDS ORDERED: DIATRIZOATE MEGLUMINE 30% 100ML VIAL INSTIL ONE (13:20)
--- NOTE | 2023-03-07 13:24 | Post Operative Brief Note ---
PG Immediate Post Op with CF Date of Surgery March 07, 2023 Pre & Post Diagnosis Operation Date: 03/07/23 12:00 Pre-Op Diagnosis: Hydronephrosis, Renal stones Post-Op Diagnosis: Hydronephrosis, Renal stones I identified the patient and participated in the time-out.: Yes Procedure Operation Date: 03/07/23 12:00 Actual Procedures p Cystoscopy, Right Retrograde Pyeleograms, Right Ureteral Stent Insertion(Right) - Domenic Gill MD Surgeon Domenic Gill MD [employer] Machines Wirer None Estimated Blood Loss 0 Findings See Below Mild right hydro, stent in good position Specimens Specimen Description: no specimen per surgeon Drains Other (6x26 R stent ) Anesthesia Type MAC Complications none
--- NOTE | 2023-03-07 13:36 | Fluoroscopy Report ---
FL retrograde includes kub CLINICAL HISTORY: CYSTOright-sided cystourethrogram COMPARISON STUDY: CT of same day FLUOROSCOPY TIME: 14.0 seconds FLUOROSCOPY IMAGES: 2 EXPOSURE DOSE: 2.34 mGy AirKerma FINDINGS: Right-sided cystourethrogram demonstrates persistent hydroureteronephrosis. Subsequent imag es demonstrate placement of a right ureteral stent, proximal portion appearing to be in satisfactory positioning. Surgical clips of the right upper quadrant abdomen. IMPRESSION: Fluoroscopic assistance as above. ACT 112: Negative or not required by law. Electronically signed by: Elia Leavitt M.D. 03/07/2023 1:35 PM
--- NOTE | 2023-03-07 13:38 | Operative Report ---
PG Post Operative Report Pre & Post Diagnosis Operation Date: 03/07/23 12:00 Pre-Op Diagnosis: Hydronephrosis, Renal stones Post-Op Diagnosis: Hydronephrosis, Renal stones I identified the patient and participated in the time-out.: Yes Procedure Operation Date: 03/07/23 12:00 Actual Procedures p Cystoscopy, Right Retrograde Pyeleogram with radiographic interpretation, Right Ureteral Stent Insertion(Right) - Domenic Gill MD Surgeon Domenic Gill MD Nnp None Estimated Blood Loss 0 Findings See Below Mild right hydronephrosis. Stent in appropriate position. Specimens None Drains 6 Maldivian by 26 cm right ureteral stent Anesthesia Type MAC Complications none Indications 52-year-old female who is status post right ESWL on 03/06/2023. She presented to the hospital with significant right flank pain and nausea. CT scan showed right obstructing ureteral calculi fragments and UA was concerning for infection. Taken to the OR for cystoscopy and right stent placement. Description of Procedure After informed consent was obtained, the patient was transported operative suite. MAC anesthesia was induced. The patient was placed in dorsolithotomy position prepped and draped in a sterile fashion. They received preoperative ceftriaxone for antibiotic prophylaxis. An appropriate surgical timeout was performed. A 22 Maldivian rigid scope was inserted per urethra into the bladder. Leonard cystoscopy revealed no stones or lesions. I turned my attention the right ureteral orifice and intubated this with a 5 Maldivian open-ended catheter. A right retrograde pyelogram was shot which showed mild hydronephrosis. A sensor wire was advanced into the kidney and confirmed fluoroscopically. A 6 Maldivian by 26 cm right ureteral stent was deployed with a good proximal coil in the renal pelvis. The distal coil was somewhat short and I was concerned that the stent was going to retract into the ureter so using a grasper I pulled this out to the urethral meatus. I advanced a sensor wire to the upper pole of the kidney and advanced the stent back into the renal pelvis and removed the wire. There was a good proximal coil confirmed fluoroscopically and a good distal coil confirmed under direct visualization. The bladder was emptied and the scope was removed. This concluded the end of the case. All counts were correct at the end of the case. I was present, scrubbed, and actively participated for the entirety of the procedure. I attest to the content of the Intraoperative Record and any orders documented therein. Any exceptions are noted below.
--- NOTE | 2023-03-07 14:02 | Anesthesiology Progress Note ---
Date of Service March 07, 2023 Anesthesia Post Procedure Vital Signs Vital Signs: Temp Pulse Pulse Pulse Resp BP BP 03/07/23 13:55 36.6 C 85 13 134/82 03/07/23 13:45 79 14 130/77 03/07/23 13:35 81 14 122/80 03/07/23 13:25 36.6 C 88 16 120/78 03/07/23 10:40 03/07/23 07:08 36.3 C L 84 16 106/68 03/07/23 04:30 36.6 C 84 16 114/73 03/07/23 04:17 03/07/23 03:08 77 18 120/71 03/07/23 00:15 83 18 126/80 03/06/23 22:53 36.5 C 86 18 146/83 H Pulse Ox O2 Del Method O2 Flow Rate 03/07/23 13:55 94 Oxymask 2 03/07/23 13:45 96 Oxymask 4 03/07/23 13:35 96 Oxymask 4 03/07/23 13:25 95 Oxymask 6 03/07/23 10:40 Room Air 03/07/23 07:08 94 Room Air 03/07/23 04:30 93 Room Air 03/07/23 04:17 Room Air 03/07/23 03:08 95 Room Air 03/07/23 00:15 93 03/06/23 22:53 96 Room Air Pain Intensity Abdomen: Pain Intensity: 3 Transfer of Care Handoff Completed per policy Notes Mental Status: alert / awake / arousable Patient Amnestic to Procedure: Yes Nausea / Vomiting: adequately controlled Pain: adequately controlled Airway Patency, RR, SpO2: stable & adequate BP & HR: stable & adequate Hydration State: stable & adequate Anesthetic Complications: no major complications apparent
--- NOTE | 2023-03-07 15:17 | Discharge Summary ---
Date of Service March 07, 2023 Admission HPI Per Admitting Provider Jolly Martinez is a pleasant 52yo female with history of Crohn's Disease, kidney stones presenting with ongoing right flank pain, nausea and vomiting. Patient with known right sided nephrolithiasis. She had right extracorporeal shock wave lithotripsy performed on 03/06/[address] Carlisle. The procedure was well tolerated. Patient was discharged home with Flomax and Oxycodone. She reports persistent right flank pain since having the procedure. Also with nausea and non-bloody emesis. She took 3 oxycodone tablets at home with no relief. Patient contacted Urology extension worker and was instructed to come to the ER for continued pain control due to PO intolerance. In the ER she is afebrile, HD stable. Significant pain on arrival. She was given doses of Toradol and Zofran as well as IV fluids. Pain much improved during my encounter. She reports 3/10 discomfort. Nausea has resolved. ER Course: Zofran 4mg IV x 2 Toradol 15mg IV NSS Flomax Ceftriaxone Principal Diagnosis Right ureter calculus with right ureter colic Discharge Exam General-alert and oriented x3, no fevers, no chills HEENT-head atraumatic and normocephalic, pupils equal and reactive to light, extraocular muscles intact Neck-no lymphadenopathy or thyromegaly, trachea midline Chest-clear to auscultation percussion. No rales wheezing or rhonchi Cardiac-regular rate and rhythm, normal S1 and S2 Abdomen-normal bowel sounds, nontender, no hepatosplenomegaly Extremities-no cyanosis, clubbing, or edema Neuro-cranial nerves II through XII intact, motor and sensory function within normal limits, strength symmetrical , no focal deficits Psych-normal affect, normal mood Discharge Data Allergies Allergy/AdvReac Type Severity Reaction Status Date / Time morphine AdvReac Severe CAUSED Verified 03/07/23 00:33 SEVERE ANXIETY Consultations 03/07/23 02:23 ED Decision to Admit Stat 03/07/23 04:35 Consult Urology Routine Procedures Performed Operation Date: 03/07/23 12:00 Actual Procedures p Cystoscopy, Right Retrograde Pyeleograms, Right Ureteral Stent Insertion(Right) - Domenic Gill MD Ordered Studies 03/06/23 23:14 CT abd pelvis wo con Stat 03/07/23 12:35 FL retrograde includes kub Routine Hospital Course (1) Hydronephrosis due to obstruction of ureter: Urology consultation and recommendations appreciated. She underwent cystoscopy today, March 07, with right ureter stent placement. Urology has sent prescriptions for Ditropan and Bactrim to her pharmacy. She will be discharged home later today. She received IV fluids and IV antibiotics while hospitalized along with pain control measures. (2) Nephrolithiasis: Urology management (3) Crohn's disease: Stable. No intervention necessary at this time Plan Discharge to home today, March 07, on Ditropan and Bactrim. Follow-up with urology as an outpatient Total Time Total Time Spent Total Time Spent (In Minutes): 35 minutes Discharge Plan Discharge Items Patient Disposition: Home - Self-Care Reason For Visit: HYDRONEPHROSIS, RENAL STONES Discharge Diagnosis: Right ureter calculus with colic, right hydronephrosis Activity: Resume your previous activity Non-emergency contact: Primary Care Provider and Urologist Call non-emergency contact if: you have any medication questions and your symptoms worsen Follow-up/Referrals: Марина Cruz [Primary Care Provider] - Diet: Regular Addtl Attending Provider Instructions: Take Tylenol and ibuprofen as needed for pain. For additional pain medication, you can take previous prescribed narcotics Continue taking Flomax as this can help with stent discomfort. Oxybutynin as needed, however this can cause dry mouth, constipation and difficulty urinating so only use when necessary. It is normal to have blood in his urine while the stent is in place. The more activity perform, the bloody or your urine will be. This is okay as long as you are able to urinate. You will be called regarding a follow-up appointment to determine stone treatment. Call the office earlier with fevers or uncontrolled pain. Pending Studies at Discharge: No Stand-Alone Forms: My [employer], Smoking Cessation Medications and DC Order Prescriptions: New oxybutynin chloride [Ditropan XL] 5 mg tablet extended release 24hr 5 mg PO DAILY Qty: 14 0RF sulfamethoxazole-trimethoprim [Bactrim DS] 800-160 mg tablet 1 tab PO BID Qty: 6 0RF Continued cetirizine [Zyrtec] 10 mg Tablet 10 mg PO HS infliximab [Remicade] 100 mg Recon Soln 100 mg IV .Q6WKS Patient Comments: EVERY 6 WEEKS metoprolol succinate 25 mg Tablet Extended Release 24 Hr 25 mg PO HS tamsulosin 0.4 mg capsule 0.4 mg PO DAILY Qty: 30 0RF oxycodone 5 mg tablet 5 mg PO Q6 PRN (Reason: pain) Qty: 8 0RF Discharge Orders: Discharge Order (Routine); Ordered 03/07/23 Ordered By: Jose Alejandro Anderson Admission Data Admit Date/Time: 03/07/23 02:27 Attending Provider: Jose Alejandro Anderson Admit Provider: Jenifer Vidal Primary Care Provider: Марина Cruz Other Providers: Jenifer Vidal ; Domenic Gill Coding Level of Care Code 79374 INP/OBS DISCH >30 MIN Diagnoses Hydronephrosis due to obstruction of ureter N13.1 Nephrolithiasis N20.0 Crohn's disease K50.90
[2023-03-07] MEDS ORDERED: TAMSULOSIN HCL 0.4 MG CAP PO SCH (16:30)
[2023-03-07] MEDS ORDERED: METOPROLOL SUCC 25MG EXT REL TAB PO SCH (21:00)
[2023-03-08] MEDS ORDERED: cefTRIAXone SODIUM 2,000 MG in DEXTROSE 5% 50 ML IV SCH (04:00)
== END 2023-03-07 17:29 | disposition home or self-care (01) ==
LOC: ED 22:46 → 3N 03-07 02:27 → INTOOBSV 03-07 02:27 → SUATTDRO 03-07 02:27 → 3N 03-07 04:17

== ENCOUNTER 2024-10-11 16:10 | Observation (INO) ==
[2024-10-11] MEDS: ONDANSETRON INJ 2 MG/ML 2 ML VIAL IV STA (16:19)
[2024-10-11 16:33] LABS: Basophils # (auto) 0.04 K/uL (0.00-0.20); Basophils % (auto) 0.4 %; Eosinophils # (auto) 0.06 K/uL (0.00-0.50); Eosinophils % (auto) 0.6 %; Hematocrit (blood only) 39.4 % (37.0-47.0); Immature Granulocytes # (auto) 0.04 K/uL (0.01-0.20); Immature Granulocytes % (auto) 0.4 %; Lymphocytes # (auto) 2.91 K/uL (1.20-3.40); Lymphocytes % (auto) 28.9 %; Mean Corpuscular Hemoglobin 28.4 pg (25.0-34.0); Mean Corpuscular Volume 86.2 fL (80.0-100.0); Mean Platelet Volume 10.2 fL (9.4-12.4); Monocytes # (auto) 0.47 K/uL (0.11-0.59); Monocytes % (auto) 4.7 %; Neutrophils # (auto) 6.56 K/uL (1.40-6.50); Platelet Count 358 K/uL (130-400); RDW Coefficient of Variation 13.1 % (11.5-14.5); RDW Standard Deviation 41.1 fL (36.4-46.3); Red Blood Count 4.57 M/uL (4.20-5.40); White Blood Count 10.08 K/ul (4.8-10.8)
[2024-10-11] MEDS: fentaNYL citrate PF 100 MCG/2 ML VIAL IV STA (16:44)
[2024-10-11 16:53] LABS: Albumin Globulin Ratio 1.1 (0.9-2); Albumin Level 4.4 gm/dl (3.4-5.0); BUN Creatinine Ratio 21.4 (10-20); Bilirubin,Total 0.5 mg/dl (0.2-1.0); Calcium 9.4 mg/dl (8.6-10.3); Creatinine Clr Calc Pharmacy 72.5 ml/min; Globulin 3.9 gm/dl (2.5-4.0); Potassium 3.6 mmol/L (3.5-5.1); Total Protein 8.3 gm/dl (6.0-8.3)
--- NOTE | 2024-10-11 17:45 | Emergency Department Note ---
ED Provider Note History of Present Illness Chief Complaint: Kidney Stone Stated Complaint: KIDNEY STONE,R FLANK PAIN Time Seen by Provider: 10/11/24 16:25 Source: patient Mode of arrival: ambulatory Limitations: no limitations Patient is a 54-year-old female who presents to the emergency department with complaints of right flank pain. Patient states that she recently had to have kidney stones removed from her left kidney and ureter and is supposed to be seen by urology about her right kidney stones as well however last night and into today she developed more severe right sided flank pain. Patient also notes nausea and vomiting as well. Patient has a significant history of kidney stones. Home Medications Medication Instructions Recorded Confirmed Type cetirizine 10 mg tablet (Zyrtec) 10 mg PO HS 03/04/23 09/21/24 History infliximab 100 mg intravenous 100 mg IV .Q6WKS 03/04/23 09/21/24 History solution (Remicade) metoprolol succinate 25 mg 25 mg PO HS 03/04/23 09/21/24 History tablet,extended release 24 hr ketorolac 10 mg tablet 10 mg PO TID PRN pain 5 days #15 03/12/23 09/21/24 Rx tabs oxycodone 5 mg tablet 5 mg PO Q6H PRN pain #8 tabs 03/17/23 09/21/24 Rx fluconazole 200 mg tablet 200 mg PO DAILY 1 day #1 tab 03/25/23 09/21/24 Rx phenazopyridine 100 mg tablet 100 mg PO TID PRN pain 3 days #10 03/25/23 09/21/24 Rx (Pyridium) tabs colestipol 1 gram tablet 2 g PO BID 09/12/24 09/21/24 History oxybutynin chloride 5 mg tablet 5 mg PO DAILY #10 tabs 09/21/24 Rx oxycodone 5 mg tablet 5 mg PO Q6H PRN pain #8 tabs 09/21/24 Rx tamsulosin 0.4 mg capsule (Flomax) 0.4 mg PO DAILY #10 caps 09/21/24 Rx Allergies Allergy/AdvReac Type Severity Reaction Status Date / Time morphine AdvReac Severe CAUSED Verified 09/12/24 12:22 SEVERE ANXIETY Iodinated Contrast Media AdvReac Mild Rash Verified 09/21/24 10:46 Past Med/Surg History Problem List (Updated 10/11/24 @ 19:32 by ROSEMARY Mehta) Hypoxia Crohn's disease Right flank pain (Acute) Hydronephrosis due to obstruction of ureter (Acute) Calculus of proximal right ureter (Acute) Nephrolithiasis Medical History Ureterolithiasis VSD (ventricular septal defect) 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 (unchanged compared to 05/2021 echo per report) Follows with [facility] cardio GERD (gastroesophageal reflux disease) Crohn's disease Anemia Hx iron infusions (most recent Fall 2021) Kidney stones Hx of supraventricular tachycardia 05/2022, no intervention needed per patient Follows with [facility] cardio History of COVID-2019 > symptoms resolved Surgical History S/P cystoscopy with ureteral stent placement 03/07/23 @ [facility] Nausea and vomiting after administration of anesthetic agent states does well w/ Fentanyl History of lithotripsy History of cystoscopy History of bilateral tubal ligation History of colonoscopy History of cholecystectomy History of appendectomy History of bowel resection x4 History of cardiac cath Several years ago > no stents Social History Smoking Status: Never smoker Second Hand Exposure: No; Do You Dip or Chew Tobacco: No; Hx Alcohol Use: Yes Alcohol type: beer, wine and hard liquor Hx Substance Use: No Preferred Language: Bengali Communication Ability: Effective Ssis Etl Developer Required: No Beliefs That Will Affect Care: None Current Living Situation: Spouse Feels Safe at Home: Yes Assistive Devices: None Physical Exam Vital Signs Vital Signs - 24 hr 10/11/24 16:13 10/11/24 16:59 10/11/24 17:00 Temperature 36.8 C Temperature Source Temporal Artery Scan Pulse Rate 74 77 82 Pulse Rate [Apical] Pulse Rate from SpO2 Sensor 81 Pulse Strength [Apical] Respiratory Rate 24 19 Respiratory Effort / Characteristics Non-Labored Respiratory Depth Normal Respiratory Pattern Blood Pressure 155/91 H Blood Pressure [Left Arm] Blood Pressure Mean 112 Blood Pressure Mean [Left Arm] Blood Pressure Position [Left Arm] Pulse Oximetry 94 92 Oxygen Delivery Method Room Air Oxygen Flow Rate Sepsis Recent Fever Within 48 Hours No Sepsis New/Unexplained Change in Mental Status No Sepsis Action Taken by Nursing No Action Required 10/11/24 17:45 10/11/24 17:46 10/11/24 18:03 Temperature Temperature Source Pulse Rate 84 74 Pulse Rate [Apical] 82 Pulse Rate from SpO2 Sensor 75 Pulse Strength [Apical] Normal Respiratory Rate 22 18 16 Respiratory Effort / Characteristics Non-Labored Spontaneous Respiratory Depth Normal Respiratory Pattern Regular Blood Pressure 118/79 113/90 Blood Pressure [Left Arm] 113/90 Blood Pressure Mean 92 97 Blood Pressure Mean [Left Arm] 97 Blood Pressure Position [Left Arm] Pulse Oximetry 97 80 L Oxygen Delivery Method Room Air Oxygen Flow Rate Sepsis Recent Fever Within 48 Hours Sepsis New/Unexplained Change in Mental Status Sepsis Action Taken by Nursing 10/11/24 19:00 Temperature Temperature Source Pulse Rate Pulse Rate [Apical] 86 Pulse Rate from SpO2 Sensor Pulse Strength [Apical] Respiratory Rate 18 Respiratory Effort / Characteristics Non-Labored Spontaneous Respiratory Depth Normal Respiratory Pattern Regular Blood Pressure Blood Pressure [Left Arm] 113/90 Blood Pressure Mean Blood Pressure Mean [Left Arm] 97 Blood Pressure Position [Left Arm] Sitting Pulse Oximetry 97 Oxygen Delivery Method Nasal Cannula Oxygen Flow Rate 2 Sepsis Recent Fever Within 48 Hours Sepsis New/Unexplained Change in Mental Status Sepsis Action Taken by Nursing VITAL SIGNS - Vital signs and nursing notes were reviewed. GENERAL -54-year-old female appearing her stated age who is in no acute distress. Communicates well with provider and answers questions appropriately. EYES - PERRL with EOMI bilaterally. Conjunctiva pink and moist with no injection noted. EARS - No deformities of external structures noted on gross examination bilaterally. NOSE - Midline and without cyanosis. No epistaxis or purulent drainage noted. LUNGS - Chest wall symmetric without accessory muscle use, intercostals retractions, or central cyanosis. Breath sounds clear throughout all byrd. No wheezes, rales, or rhonchi appreciated. CARDIAC - RRR with S1/S2. No murmur, rubs, or gallops appreciated. ABDOMEN - Abdominal contour without pulsations or visible masses. Negative Overton's or Pabon Barbosa's Signs. BS normoactive all four quadrants. No palpable masses, hepatosplenomegaly, or ascites noted. NEUROLOGIC - Sensory intact to light touch throughout. PSYCH - A&Ox3 and cooperates fully with examiner. Pt is very pleasant and interacts well with examiner. Course Administered Medications Sodium Chloride (Nss) 1,000 mls @ 999 mls/hr IV .Q1H1M ONE Stop: 10/11/24 19:36 Last Admin: 10/11/24 18:42 Dose: 999 mls/hr Documented By: TONI Discontinued Medications Fentanyl Citrate (Fentanyl Citrate Pf 100 Mcg/2 Ml Vial) 100 mcg IV NOW STA Stop: 10/11/24 16:38 Last Admin: 10/11/24 16:44 Dose: 100 mcg Documented By: TONI Hydromorphone HCl (Hydromorphone Inj 1 Mg/Ml Syringe) 1 mg IV NOW STA Stop: 10/11/24 17:51 Last Admin: 10/11/24 17:56 Dose: 1 mg Documented By: ARS Ondansetron HCl (Ondansetron Inj 2 Mg/Ml 2 Ml Vial) 4 mg IV NOW STA Stop: 10/11/24 16:18 Last Admin: 10/11/24 16:19 Dose: 4 mg Documented By: VIKTORIA Medical Decision Making Differential Diagnosis Differential diagnosis includes renal calculus, pyelonephritis, musculoskeletal pain, trauma, herpes zoster, malignancy, among others. Medical Records Attestation: I reviewed the patient's medical records. Home Medications was personally reviewed by me Laboratory Data Attestation: I reviewed the patient's lab results. 10/11/24 16:20 10/11/24 16:20 Lab Results 10/11/24 Range/Units 16:20 WBC 10.08 (4.8-10.8) K/ul RBC 4.57 (4.20-5.40) M/uL Hgb 13.0 (12.0-16.0) g/dl Hct 39.4 (37.0-47.0) % MCV 86.2 (80.0-100.0) fL MCH 28.4 (25.0-34.0) pg MCHC 33.0 (32.0-36.0) g/dL RDW Std Deviation 41.1 (36.4-46.3) fL RDW Coeff of Wei 13.1 (11.5-14.5) % Plt Count 358 (130-400) K/uL MPV 10.2 (9.4-12.4) fL Immature Gran % (Auto) 0.4 % Neut % (Auto) 65.0 % Lymph % (Auto) 28.9 % [place] % (Auto) 4.7 % Eos % (Auto) 0.6 % Baso % (Auto) 0.4 % Neut # (Auto) 6.56 H (1.40-6.50) K/uL Lymph # (Auto) 2.91 (1.20-3.40) K/uL Durham # (Auto) 0.47 (0.11-0.59) K/uL Eos # (Auto) 0.06 (0.00-0.50) K/uL Baso # (Auto) 0.04 (0.00-0.20) K/uL Immature Gran # (Auto) 0.04 (0.01-0.20) K/uL Sodium 137 (136-145) mmol/L Potassium 3.6 (3.5-5.1) mmol/L Chloride 104 (98-107) mmol/L Carbon Dioxide 26 (21-32) mmol/L Anion Gap 7 (3-11) BUN 18 (6-23) mg/dl Creatinine 0.84 (0.6-1.2) mg/dl Est Cr Clr Drug Dosing 72.5 ml/min eGFR 83.04 BUN/Creatinine Ratio 21.4 H (10-20) Glucose 104 H (70-99(Fasting)) mg/dl Calcium 9.4 (8.6-10.3) mg/dl Total Bilirubin 0.5 (0.2-1.0) mg/dl AST 17 (13-39) U/L ALT 24 (7-52) U/L Alkaline Phosphatase 66 (34-104) U/L Total Protein 8.3 (6.0-8.3) gm/dl Albumin 4.4 (3.4-5.0) gm/dl Globulin 3.9 (2.5-4.0) gm/dl Albumin/Globulin Ratio 1.1 (0.9-2) Lipase 28 (11-82) U/L Imaging Data Radiologist's Impression: Abdomen/Pelvis CT 10/11/24 16:26 EXAM: CT Abdomen and Pelvis Without Intravenous Contrast INDICATION: Right flank pain. TECHNIQUE: Axial computed tomography images of the abdomen and pelvis without intravenous contrast. Sagittal and coronal reformatted images were created and reviewed. This CT exam was performed using one or more of the following dose reduction techniques: automated exposure control, adjustment of the mA and/or kV according to patient size, and/or use of iterative reconstruction technique. COMPARISON: 08/05/2024 FINDINGS: Limitations: None. Lung bases: There is mild groundglass opacity in the left lower lobe abutting the major fissure. Minimal atelectasis in the right lower lobe. Pleural space: No basilar pleural effusion. Heart: No abnormality noted. Mediastinum: No abnormality noted. ABDOMEN: Liver: Lack of intravenous contrast limits detection of some masses. No abnormality noted. Gallbladder and bile ducts: Cholecystectomy. No ductal dilation or stone noted. Pancreas: No pancreatic mass, calcification, inflammation or ductal dilation noted. Spleen: No significant abnormality noted. Adrenals: No significant abnormality noted. Kidneys and ureters: There is mild to moderate right hydronephrosis and dilatation of the proximal right ureter. There is a 5 x 9 mm right ureteral stone at the level of L4. There are innumerable stones within the bilateral renal parenchyma with the stone burden significantly greater on the right. Largest right-sided stone measures up to 7 mm and left 5 mm. No urinary gas. No perinephric fluid. Stomach and bowel: There is partial right colectomy. Staple line and patulous loop of sigmoid colon noted. There is stable mild thickening of the rectum. No obstruction. Left colonic diverticulosis noted. PELVIS: Appendix: Appendectomy. Bladder: Appears normal for the degree of filling. No stones or inflammation. No large mass. Masses may not be detected in the absence of opacification. Reproductive: No abnormalities noted. ABDOMEN and PELVIS: Intraperitoneal space: No free air. No significant fluid collection. Bones/joints: No acute changes. Soft tissues: Umbilical hernia containing fat. Vasculature: No abdominal aortic aneurysm. Lymph nodes: No pathologically enlarged lymph nodes. IMPRESSION: 1. Mild to moderate right hydronephrosis and proximal ureteral dilatation to a 5 x 9 mm right ureteral stone at the level of L4. Impression multiple bilateral nonobstructing kidney stones present. 2. Stable proctitis. ACT 112: Negative or not required by law. Electronically signed by Tere Durham 10-11-2024 6:18 PM MDM Narrative Patient is a 54-year-old female who presents to the emergency department with complaints of right flank pain. Patient states that she recently had to have kidney stones removed from her left kidney and ureter and is supposed to be seen by urology about her right kidney stones as well however last night and into today she developed more severe right sided flank pain. Patient also notes nausea and vomiting as well. Patient has a significant history of kidney stones. Patient was evaluated by myself and findings are noted in the physical exam above. Patient was ordered IV placement, lab work, urinalysis, CT of the abdomen and pelvis, as well as Zofran for nausea and fentanyl for pain. Patient's lab work resulted and was relatively unremarkable. Patient has a normal white blood cell count of 10.08. Patient's other labs were also normal remarkable. Patient's BUN and creatinine were normal. BUN of 18 and a creatinine of 0.84. Upon reevaluation the patient states that her nausea has improved and she is not feeling as nauseous however her pain was very mildly reduced with the fentanyl. Patient states that her pain is still an 8/10. Patient was ordered a dose of Dilaudid at this time. Patient CT was completed and interpreted by radiology to show a mild to moderate right hydronephrosis and proximal ureteral dilation due to a 7 to 9 mm right ureteral stone. Patient also has impression of multiple bilateral nonobstructing kidney stones. I contacted urology about this patient and spoke with Dr. Carlisle who is on-call for urology today. I discussed the patient's chief complaint, current status, current vitals and pain. I also discussed with the Dr. Carlisle the findings on the patient's CT scan and lab results. Dr. Carlisle stated that due to the patient's intractable pain that she would likely benefit from being admitted to the hospital and Dr. Gill could potentially see her tomorrow, as he is on-call tomorrow. He noted that the patient would likely have a difficult time passing a 7 mm stone that is obstructing. I discussed this with the patient he was agreeable to admission to the hospital, and actually preferred that based on her pain being difficult to control. Patient after her dose of Dilaudid is resting comfortably in bed. Patient's daughter is at bedside and she verbalized understanding of the plan and spoke to the patient's who is also understanding of the plan. [facility] I [facility] with Dr. Robertson about this patient. I gave Dr. Robertson a full report on the patient as well and told him about my consultation with urology. Urology will consult on this patient but felt that the patient needed to be admitted under the medical service. [place] hospitalist group excepted this patient for admission, please refer to their documentation for further management evaluation of this patient. Impression Hydronephrosis due to obstruction of ureter, Calculus of proximal right ureter, Right flank pain Discharge Plan Visit Data Chief Complaint: Kidney Stone Stated Complaint: KIDNEY STONE,R FLANK PAIN ED Provider: Stu Sandy ED Midlevel Provider: Karye Santana Discharge Problem: Hydronephrosis due to obstruction of ureter, Calculus of proximal right ureter, Right flank pain Patient Disposition: Admitted As Inpatient Forms Stand Alone Forms: My [facility] Prescriptions Prescriptions: No Action phenazopyridine [Pyridium] 100 mg tablet 100 mg PO TID PRN (Reason: pain) 3 Days Qty: 10 0RF fluconazole 200 mg tablet 200 mg PO DAILY 1 Days Qty: 1 0RF ketorolac 10 mg tablet 10 mg PO TID PRN (Reason: pain) 5 Days Qty: 15 0RF cetirizine [Zyrtec] 10 mg Tablet 10 mg PO HS infliximab [Remicade] 100 mg Recon Soln 100 mg IV .Q6WKS Patient Comments: EVERY 6 WEEKS metoprolol succinate 25 mg Tablet Extended Release 24 Hr 25 mg PO HS oxycodone 5 mg tablet 5 mg PO Q6H PRN (Reason: pain) Qty: 8 0RF colestipol 1 gram tablet 2 g PO BID oxybutynin chloride 5 mg tablet 5 mg PO DAILY Qty: 10 0RF oxycodone 5 mg tablet 5 mg PO Q6H PRN (Reason: pain) Qty: 8 0RF tamsulosin [Flomax] 0.4 mg capsule 0.4 mg PO DAILY Qty: 10 0RF Referrals Referrals: Lluvia Cruz [facility] [Primary Care Provider] -
[2024-10-11] MEDS: HYDROmorphone INJ 1 MG/ML SYRINGE IV STA (17:56)
--- NOTE | 2024-10-11 18:18 | CT Scan Report ---
EXAM: CT Abdomen and Pelvis Without Intravenous Contrast INDICATION: Right flank pain. TECHNIQUE: Axial computed tomography images of the abdomen and pelvis without intravenous contrast. Sagittal and coronal reformatted images were created and reviewed. This CT exam was performed using one or more of the following dose reduction techniques: automated exposure control, adjustment of the mA and/or kV according to patient size, and/or use of iterative reconstruction technique. COMPARISON: 08/05/2024 FINDINGS: Limitations: None. Lung bases: There is mild groundglass opacity in the left lower lobe abutting the major fissure. Minimal atelectasis in the right lower lobe. Pleural space: No basilar pleural effusion. Heart: No abnormality noted. Mediastinum: No abnormality noted. ABDOMEN: Liver: Lack of intravenous contrast limits detection of some masses. No abnormality noted. Gallbladder and bile ducts: Cholecystectomy. No ductal dilation or stone noted. Pancreas: No pancreatic mass, calcification, inflammation or ductal dilation noted. Spleen: No significant abnormality noted. Adrenals: No significant abnormality noted. Kidneys and ureters: There is mild to moderate right hydronephrosis and dilatation of the proximal right ureter. There is a 5 x 9 mm right ureteral stone at the level of L4. There are innumerable stones within the bilateral renal parenchyma with the stone burden significantly greater on the right. Largest right-sided stone measures up to 7 mm and left 5 mm. No urinary gas. No perinephric fluid. Stomach and bowel: There is partial right colectomy. Staple line and patulous loop of sigmoid colon noted. There is stable mild thickening of the rectum. No obstruction. Left colonic diverticulosis noted. PELVIS: Appendix: Appendectomy. Bladder: Appears normal for the degree of filling. No stones or inflammation. No large mass. Masses may not be detected in the absence of opacification. Reproductive: No abnormalities noted. ABDOMEN and PELVIS: Intraperitoneal space: No free air. No significant fluid collection. Bones/joints: No acute changes. Soft tissues: Umbilical hernia containing fat. Vasculature: No abdominal aortic aneurysm. Lymph nodes: No pathologically enlarged lymph nodes. IMPRESSION: 1. Mild to moderate right hydronephrosis and proximal ureteral dilatation to a 5 x 9 mm right ureteral stone at the level of L4. Impression multiple bilateral nonobstructing kidney stones present. 2. Stable proctitis. ACT 112: Negative or not required by law. Electronically signed by Tere Durham 10-11-2024 6:18 PM
[2024-10-11] MEDS: SODIUM CHLORIDE 0.9% 1,000 ML IV ONE (18:42)
--- NOTE | 2024-10-11 19:07 | History & Physical Report ---
Date of Service October 11, 2024 Assessment & Plan (1) Hydronephrosis due to obstruction of ureter: Plan: Right nephrolithiasis Mild to moderate right hydronephrosis and proximal ureteral dilation due to 5 x 9 right ureteral stone. Multiple bilateral nonobstructing kidney stones Urology consulted. Recommended medical admission with urologic consultation. No GRETTA is present. Rocephin x 1 Tylenol, hydromorphone for pain control. Zofran for nausea Continue IV FM Strain all urine (2) Crohn's disease: Plan: Crohn's disease On Remicade, increased risk of infections - Last Remicade 09/15 Given 1 dose of Rocephin as above No acute Crohn's symptoms, no acute change in management Patient is at increased risk of VTE due to her underlying Crohn's. Will continue on Lovenox DVT prophylaxis. Okay to continue this through stent procedure per urology (3) Hypoxia: Plan: Transient hypoxia following hydromorphone administration in the ER. She was not hypoxic in the ER. She was not tachycardic. She denies inspiratory and pleuritic pain. Has some right costal margin pain otherwise no evidence or symptoms of PE. Hypoxia due to respiratory suppression; however she is at increased risk of VTE/PE due to her underlying Crohn's and if she had any persistent hypoxia/tachycardia would pursue D-dimer versus CTA at that point. Plan DVT prophylaxis: Lovenox Diet: Regular, n.p.o. at midnight CODE STATUS: Full code Disposition: [facility]O History of Present Illness Primary Care Provider: Lluvia Cruz Jolly is a 54-year-old female with a past medical history of Crohn's disease on Remicade, hydroureteronephrosis due to nephrolithiasis, recent nephrolithiasis with left ureteroscopy for stone treatment 09/21/2024 and stent removal 09/23/2024 pending additional treatment for right-sided stones who presents to the ER with worsened right flank pain. Jolly is seen at the bedside. She reports that she has had return of nausea, vomiting, right lower posterior flank pain with some radiation to her epigastrium, and right abdomen similar to prior kidney stones over the last day. This feels much better after pain control in the ER. She has not had any dark urine or polyuria. She has had no fevers chills or sweats. Crohn's is well- controlled on Remicade, she has not had any flares and denies recent melena, hematochezia, or abdominal pain outside of her kidney stones. She has had some pain which is tender to palpation at her right lower rib and is reproducible on palpation otherwise denies chest pain/chest pressure. No dyspnea. She was slightly hypoxic following administration of of 1 mg of hydromorphone in the ER, she is not short of breath. Medical History: Reviewed Medications: Reviewed Surgical History: Reviewed Family history: Reviewed Allergies: Reviewed Social History: Reviewed Code Status: FUll Allergies Allergy/AdvReac Type Severity Reaction Status Date / Time morphine AdvReac Severe CAUSED Verified 09/12/24 12:22 SEVERE ANXIETY Iodinated Contrast Media AdvReac Mild Rash Verified 09/21/24 10:46 Home Medications Medication Instructions Recorded Confirmed Type cetirizine 10 mg tablet (Zyrtec) 10 mg PO HS 03/04/23 09/21/24 History infliximab 100 mg intravenous 100 mg IV .Q6WKS 03/04/23 09/21/24 History solution (Remicade) metoprolol succinate 25 mg 25 mg PO HS 03/04/23 09/21/24 History tablet,extended release 24 hr ketorolac 10 mg tablet 10 mg PO TID PRN pain 5 days #15 03/12/23 09/21/24 Rx tabs oxycodone 5 mg tablet 5 mg PO Q6H PRN pain #8 tabs 03/17/23 09/21/24 Rx fluconazole 200 mg tablet 200 mg PO DAILY 1 day #1 tab 03/25/23 09/21/24 Rx phenazopyridine 100 mg tablet 100 mg PO TID PRN pain 3 days #10 03/25/23 09/21/24 Rx (Pyridium) tabs colestipol 1 gram tablet 2 g PO BID 09/12/24 09/21/24 History oxybutynin chloride 5 mg tablet 5 mg PO DAILY #10 tabs 09/21/24 Rx oxycodone 5 mg tablet 5 mg PO Q6H PRN pain #8 tabs 09/21/24 Rx tamsulosin 0.4 mg capsule (Flomax) 0.4 mg PO DAILY #10 caps 09/21/24 Rx Past Med/Surg History Problem List (Updated 10/11/24 @ 19:15 by Ventura Bowser MD) Hypoxia Crohn's disease Right flank pain (Acute) Hydronephrosis due to obstruction of ureter (Acute) Calculus of proximal right ureter Nephrolithiasis Medical History Ureterolithiasis VSD (ventricular septal defect) 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 (unchanged compared to 05/2021 echo per report) Follows with [facility] cardio GERD (gastroesophageal reflux disease) Crohn's disease Anemia Hx iron infusions (most recent Fall 2021) Kidney stones Hx of supraventricular tachycardia 05/2022, no intervention needed per patient Follows with [facility] cardio History of COVID-2019 > symptoms resolved Surgical History S/P cystoscopy with ureteral stent placement 03[place]07[place] [facility] [place]a and vomiting after administration of anesthetic agent states does well w/ Fentanyl History of lithotripsy History of cystoscopy History of bilateral tubal ligation History of colonoscopy History of cholecystectomy History of appendectomy History of bowel resection x4 History of cardiac cath Several years ago > no stents Social History Smoking Status: Never smoker Second Hand Exposure: No; Do You Dip or Chew Tobacco: No; Hx Alcohol Use: Yes Alcohol type: beer, wine and hard liquor Hx Substance Use: No Preferred Language: Andorran Communication Ability: Effective Clean Energy Policy Analyst Required: No Beliefs That Will Affect Care: None Current Living Situation: Spouse Feels Safe at Home: Yes Assistive Devices: None Physical Exam Physical Exam: General: A&Ox3. NAD. Cooperative. HEENT: Atraumatic, normocephalic. Vision and hearing intact Pulm: CTAB A&P. -wheezes, -rales, -rhonchi. Symmetrical chest rise. No increased work of breathing. No respiratory distress. Cardiac: RRR, -mrg. Radial pulses intact and symmetrical. Abdominal: +RLQ TTP, +R CVA tenderness. +R lower costal margin TTP. Abdomen is without rebound/guarding Extremities: Warm and dry Results & Data Results & Data Vital Signs (Past 12 Hours) Vital Signs Temp Pulse Pulse Resp BP BP Pulse Ox 10/11/24 18:03 74 16 113/90 80 L 10/11/24 17:46 82 18 113/90 97 10/11/24 17:45 84 22 118/79 10/11/24 17:00 82 19 92 10/11/24 16:59 77 10/11/24 16:13 36.8 C 74 24 155/91 H 94 O2 Del Method 10/11/24 18:03 10/11/24 17:46 Room Air 10/11/24 17:45 10/11/24 17:00 10/11/24 16:59 10/11/24 16:13 Room Air PG Care Time/CCT Total # of Minutes Spent Total Time Spent with Patient: Total time spent is greater than 50% in coordination of care (as documented) at patient's floor/unit and/or counseling patient: Coding Level of Care Code 91239 INT INP/OBS CARE 2/55MIN Diagnoses Hydronephrosis due to obstruction of ureter N13.1 Crohn's disease K50.90 Hypoxia R09.02
[2024-10-11] MEDS: ENOXAPARIN INJ 40 MG/0.4 ML SYR SQ SCH (20:08)
[2024-10-11] MEDS ORDERED: ACETAMINOPHEN 325 MG TAB PO PRN (21:22)
[2024-10-11] MEDS: ONDANSETRON INJ 2 MG/ML 2 ML VIAL IV PRN (21:44)
[2024-10-12] MEDS: HYDROmorphone INJ 0.5 MG/0.5 ML SYR IV PRN (00:51)
[2024-10-12 01:31] LABS: Appearance Urine Clear (Clear); Bacteria Urine Automated None Seen (None Seen); Bilirubin Urine Negative (Negative); Blood Urine 2+ (Negative); Cast Urine Automated 0-2 /lpf (0-2); Color Urine Yellow; Glucose Urine UA Negative (Negative); Ketones Urine Negative (Negative); Leukocyte Esterase Urine Negative (Negative); Nitrite Urine Negative (Negative); Protein Urine Negative (Negative); Urobilinogen Urine Negative (Negative); pH Urine 5.5 (4.5-7.5)
[2024-10-12 07:28] LABS: Basophils # (auto) 0.02 K/uL (0.00-0.20); Basophils % (auto) 0.3 %; Eosinophils # (auto) 0.07 K/uL (0.00-0.50); Eosinophils % (auto) 0.9 %; Hematocrit (blood only) 35.7 % (37.0-47.0); Hemoglobin 11.8 g/dl (12.0-16.0); Immature Granulocytes # (auto) 0.02 K/uL (0.01-0.20); Immature Granulocytes % (auto) 0.3 %; Lymphocytes # (auto) 3.68 K/uL (1.20-3.40); Lymphocytes % (auto) 46.2 %; Mean Corpuscular Hemoglobin 28.6 pg (25.0-34.0); Mean Corpuscular Hgb Conc 33.1 g/dL (32.0-36.0); Mean Corpuscular Volume 86.7 fL (80.0-100.0); Mean Platelet Volume 10.6 fL (9.4-12.4); Monocytes # (auto) 0.35 K/uL (0.11-0.59); Monocytes % (auto) 4.4 %; Neutrophils # (auto) 3.83 K/uL (1.40-6.50); Neutrophils % (auto) 47.9 %; Platelet Count 312 K/uL (130-400); RDW Coefficient of Variation 13.1 % (11.5-14.5); RDW Standard Deviation 41.1 fL (36.4-46.3); Red Blood Count 4.12 M/uL (4.20-5.40); White Blood Count 7.97 K/ul (4.8-10.8)
[2024-10-12 07:38] LABS: BUN Creatinine Ratio 15.4 (10-20); Calcium 8.9 mg/dl (8.6-10.3); Creatinine Clr Calc Pharmacy 78.1 ml/min; Potassium 3.8 mmol/L (3.5-5.1)
[2024-10-12] MEDS ORDERED: KETOROLAC TROMETHAMINE 15 MG/ML VIAL IV PRN (08:22)
--- NOTE | 2024-10-12 08:24 | Hospitalist Progress Note ---
Date of Service October 12, 2024 Assessment & Plan (1) Hydronephrosis due to obstruction of ureter: Plan: Right nephrolithiasis Mild to moderate right hydronephrosis and proximal ureteral dilation due to 5 x 9 right ureteral stone. Multiple bilateral nonobstructing kidney stones Urology consulted. Recommended medical admission with urologic consultation. No GRETTA is present. Rocephin x 1 Tylenol, hydromorphone for pain control. Zofran for nausea Continue IV FM Strain all urine 10/12 - NPO, IVF added NS @ 60cc/hr while NPO. Will also add toradol IV for pain control as needed. Strain urine order placed. Flomax ordered HS. Check Vit D given multiple stones to ensure not deficient, given hx IBD - (2) Crohn's disease: Plan: Crohn's disease On Remicade, increased risk of infections - Last Remicade 09/15 Given 1 dose of Rocephin as above No acute Crohn's symptoms, no acute change in management Patient is at increased risk of VTE due to her underlying Crohn's. Will continue on Lovenox DVT prophylaxis. Okay to continue this through stent procedure per urology (3) Hypoxia: Plan: Transient hypoxia following hydromorphone administration in the ER. She was not hypoxic in the ER. She was not tachycardic. She denies inspiratory and pleuritic pain. Has some right costal margin pain otherwise no evidence or symptoms of PE. Hypoxia due to respiratory suppression; however she is at increased risk of VTE/PE due to her underlying Crohn's and if she had any persistent hypoxia/tachycardia would pursue D-dimer versus CTA at that point. Plan DVT prophylaxis: Lovenox Diet: Regular, n.p.o. at midnight CODE STATUS: Full code Disposition: [facility] [place] Admission and Anticipated Discharge Date Admission Date: October 11, 2024 Results & Data Results & Data Vital Signs (Past 12 Hours) Vital Signs Temp Pulse Pulse Pulse Resp BP BP 10/12/24 07:38 36.6 C 75 16 109/72 10/11/24 22:24 10/11/24 21:00 36.8 C 87 18 125/78 10/11/24 20:44 86 18 124/72 10/11/24 20:30 81 18 124/72 Pulse Ox O2 Del Method O2 Flow Rate 10/12/24 07:38 96 Room Air 10/11/24 22:24 Nasal Cannula 2 10/11/24 21:00 93 Nasal Cannula 10/11/24 20:44 98 Nasal Cannula 2 10/11/24 20:30 99 Nasal Cannula 2 Laboratory Results 10/12/24 10/12/24 10/11/24 Range/Units 06:43 00:38 16:20 WBC 7.97 10.08 (4.8-10.8) K/ul RBC 4.12 L 4.57 (4.20-5.40) M/uL Hgb 11.8 L 13.0 (12.0-16.0) g/dl Hct 35.7 L 39.4 (37.0-47.0) % MCV 86.7 86.2 (80.0-100.0) fL MCH 28.6 28.4 (25.0-34.0) pg MCHC 33.1 33.0 (32.0-36.0) g/dL RDW Std Deviation 41.1 41.1 (36.4-46.3) fL RDW Coeff of Wei 13.1 13.1 (11.5-14.5) % Plt Count 312 358 (130-400) K/uL MPV 10.6 10.2 (9.4-12.4) fL Immature Gran % (Auto) 0.3 0.4 % Neut % (Auto) 47.9 65.0 % Lymph % (Auto) 46.2 28.9 % [place] % (Auto) 4.4 4.7 % Eos % (Auto) 0.9 0.6 % Baso % (Auto) 0.3 0.4 % Neut # (Auto) 3.83 6.56 H (1.40-6.50) K/uL Lymph # (Auto) 3.68 H 2.91 (1.20-3.40) K/uL [place] # (Auto) 0.35 0.47 (0.11-0.59) K/uL Eos # (Auto) 0.07 0.06 (0.00-0.50) K/uL Baso # (Auto) 0.02 0.04 (0.00-0.20) K/uL Immature Gran # (Auto) 0.02 0.04 (0.01-0.20) K/uL Sodium 140 137 (136-145) mmol/L Potassium 3.8 3.6 (3.5-5.1) mmol/L Chloride 108 H 104 (98-107) mmol/L Carbon Dioxide 26 26 (21-32) mmol/L Anion Gap 6 7 (3-11) BUN 12 18 (6-23) mg/dl Creatinine 0.78 0.84 (0.6-1.2) mg/dl Est Cr Clr Drug Dosing 78.1 72.5 ml/min eGFR 90.76 83.04 BUN/Creatinine Ratio 15.4 21.4 H (10-20) Glucose 88 104 H (70-99(Fasting)) mg/dl Calcium 8.9 9.4 (8.6-10.3) mg/dl Total Bilirubin 0.5 (0.2-1.0) mg/dl AST 17 (13-39) U/L ALT 24 (7-52) U/L Alkaline Phosphatase 66 (34-104) U/L Total Protein 8.3 (6.0-8.3) gm/dl Albumin 4.4 (3.4-5.0) gm/dl Globulin 3.9 (2.5-4.0) gm/dl Albumin/Globulin Ratio 1.1 (0.9-2) Lipase 28 (11-82) U/L Urine Color Yellow Urine Appearance Clear (Clear) Urine pH 5.5 (4.5-7.5) Ur Specific [place] 1.020 (1.000-1.030) Urine Protein Negative (Negative) Urine Glucose (UA) Negative (Negative) Urine Ketones Negative (Negative) Urine Blood 2+ H (Negative) Urine Nitrite Negative (Negative) Urine Bilirubin Negative (Negative) Urine Urobilinogen Negative (Negative) Ur Leukocyte Esterase Negative (Negative) Urine WBC (Auto) 6-10 H (0-5) /hpf Urine RBC (Auto) 11-20 H (0-2) /hpf U Hyaline Cast (Auto) 0-2 (0-2) /lpf U Epithel Cells (Auto) 3-5 H (0-2) /hpf Urine Bacteria (Auto) None Seen (None Seen) PG Care Time/CCT Total # of Minutes Spent Total Time Spent with Patient: Total time spent is greater than 50% in coordination of care (as documented) at patient's floor/unit and/or counseling patient: Coding Diagnoses Hydronephrosis due to obstruction of ureter N13.1 Crohn's disease K50.90 Hypoxia R09.02
[2024-10-12 09:17] LABS: Magnesium 1.9 mg/dl (1.7-2.4)
[2024-10-12] MEDS ORDERED: PROPOFOL IV EMULSION 10 MG/ML 20 ML VIAL IV ONE (09:31)
[2024-10-12] MEDS ORDERED: fentaNYL citrate PF 100 MCG/2 ML VIAL ONE (09:31)
[2024-10-12] MEDS ORDERED: LIDOCAINE 2% 2 ML VIAL/AMP(20MG/ML) INFIL ONE (09:31)
[2024-10-12] MEDS ORDERED: MIDAZOLAM HCL 1 MG/ML 2ML VIAL ONE ×2 (09:31→11:44)
[2024-10-12] MEDS ORDERED: ONDANSETRON INJ 2 MG/ML 2 ML VIAL ONE (09:31)
--- NOTE | 2024-10-12 09:41 | Urology Consultation ---
Date of Consultation October 12, 2024 Assessment & Plan (1) Hydronephrosis due to obstruction of ureter: (2) Calculus of proximal right ureter: (3) Right flank pain: Plan 54 yo female admitted with right flank pain secondary to an obstructing right ureteral stone Afebrile with stable vitals Labs show no leukocytosis and normal renal function Urinalysis not overly concerning for infection with 2+ blood, 610 WBC, 1120 RBC, 3-5 Epi cells. Will check culture. We discussed acute stone and pain management with cystoscopy and stent placement. Ureteral stents were discussed as well as postoperative issues and pain management. She is aware a second procedure will be needed for stone treatment. Risks and benefits were discussed. All questions were answered. Will plan to proceed to the OR today for cystoscopy, right retrograde pyelogram, right ureteral stent placement. Risks and benefits to be reviewed with patient by Dr. Gill. Keep NPO. Will cover with Ancef preoperatively. Continue supportive care and pain management as needed. Urology to follow. Supervising Physician Co-Signing Physician Notes Discussed patient with TIFFANIE. Agree with plan. Plan for cystoscopy, right retrograde pyelogram, right ureteral stent. Explained why we cannot treat stones at this time. Consent obtained, patient marked. History of Present Illness Attending Physician: Jose Alejandro Anderson MD History of Present Illness 54-year-old female who presented to the ED yesterday due to nausea, vomiting, and right flank pain. She was afebrile and hemodynamically stable on arrival. Labs showing no leukocytosis and normal renal function. Urinalysis with 2+ blood, 610 WBC, 1120 RBC, negative bacteria, negative nitrite. CT abdomen pelvis demonstrated a 5 x 9 mm right ureteral stone with mild to moderate right- sided hydronephrosis and multiple bilateral nonobstructing kidney stones. She is admitted to medicine service. Patient seen at bedside today. Awake and resting in bed on arrival. No acute distress. Pain is currently well-controlled. Denies noticeable stone passage. Voiding without issue. No fevers. Has been NPO. Patient is known to the urology service, follows with Dr. Gill. She has a known history of nephrolithiasis. Recently underwent left ureteroscopy and stone treatment on 09/21/2024. Allergies Allergy/AdvReac Type Severity Reaction Status Date / Time morphine AdvReac Severe CAUSED Verified 10/12/24 09:50 SEVERE ANXIETY Iodinated Contrast Media AdvReac Mild Rash Verified 10/12/24 09:50 Home Medications Medication Instructions Recorded Confirmed Type cetirizine 10 mg tablet (Zyrtec) 10 mg PO HS 03/04/23 10/11/24 History infliximab 100 mg intravenous 100 mg IV .Q6WKS 03/04/23 10/11/24 History solution (Remicade) metoprolol succinate 25 mg 25 mg PO HS 03/04/23 10/11/24 History tablet,extended release 24 hr ketorolac 10 mg tablet 10 mg PO TID PRN pain 5 days #15 03/12/23 10/11/24 Rx tabs oxycodone 5 mg tablet 5 mg PO Q6H PRN pain #8 tabs 03/17/23 10/11/24 Rx fluconazole 200 mg tablet 200 mg PO DAILY 1 day #1 tab 03/25/23 10/11/24 Rx colestipol 1 gram tablet 2 g PO BID 09/12/24 10/11/24 History oxybutynin chloride 5 mg tablet 5 mg PO DAILY #10 tabs 09/21/24 10/11/24 Rx tamsulosin 0.4 mg capsule (Flomax) 0.4 mg PO DAILY #10 caps 09/21/24 10/11/24 Rx Patient History Medical History Ureterolithiasis VSD (ventricular septal defect) 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 (unchanged compared to 05/2021 echo per report) Follows with [facility] cardio GERD (gastroesophageal reflux disease) Crohn's disease Anemia Hx iron infusions (most recent Fall 2021) Kidney stones Hx of supraventricular tachycardia 05/2022, no intervention needed per patient Follows with [facility] cardio History of COVID-2019 > symptoms resolved Surgical History S/P cystoscopy with ureteral stent placement 03/07/23 @ [facility] [place] Nausea and vomiting after administration of anesthetic agent states does well w/ Fentanyl History of lithotripsy History of cystoscopy History of bilateral tubal ligation History of colonoscopy History of cholecystectomy History of appendectomy History of bowel resection x4 History of cardiac cath Several years ago > no stents Social History Smoking Status: Never smoker Second Hand Exposure: No; Do You Dip or Chew Tobacco: No; Hx Alcohol Use: No Hx Substance Use: No Preferred Language: Bahraini Communication Ability: Effective Senior Client Advisor Required: No Beliefs That Will Affect Care: None Current Living Situation: Spouse Other Information That Helps Us Care for You: No Feels Safe at Home: Yes Safety Concerns: Feels Safe At This Time Assistive Devices: None Review of Systems Review of Systems: All systems reviewed & are unremarkable except as noted in HPI & below Physical Exam Constitutional: no acute distress Respiratory: no respiratory distress and no labored breathing Musculoskeletal: Head/Neck/Chest: normocephalic Skin: No visible rashes or lesions to exposed skin areas Neurologic: moves all extremities and awake Psychiatric: A+Ox3, euthymic affect Results & Data Vital Signs (Past 12 Hours) Vital Signs Temp Pulse Resp BP Pulse Ox O2 Del Method O2 Flow Rate 10/12/24 07:38 36.6 C 75 16 109/72 96 Room Air 10/11/24 22:24 Nasal Cannula 2 PG Care Time/CCT Total # of Minutes Spent Total Time Spent with Patient: Total time spent is greater than 50% in coordination of care (as documented) at patient's floor/unit and/or counseling patient: Coding Level of Care Code 37767 IN/OBS CONSULT LVL 4,60M Diagnoses Hydronephrosis due to obstruction of ureter N13.1 Calculus of proximal right ureter N20.1 Right flank pain R10.9
[2024-10-12] MEDS ORDERED: ONDANSETRON INJ 2 MG/ML 2 ML VIAL IV PRN (10:06)
[2024-10-12] MEDS ORDERED: fentaNYL citrate PF 100 MCG/2 ML VIAL IV PRN (10:06)
[2024-10-12] MEDS ORDERED: ATROPINE SULFATE 0.1 MG/ML 10ML SYR IV PRN (10:06)
[2024-10-12] MEDS ORDERED: ePHEDrine sulfate 50 MG/ML AMP IV PRN (10:06)
--- NOTE | 2024-10-12 10:06 | Anesthesiology Consultation ---
Date of Service October 12, 2024 Assessment & Plan Chart Review Chart Review: Acceptable Risk for Surgery and Patient NOT seen in Pre Admission Testing Consults Requested none ASA ASA2 Proposed Anesthesia Anesthesia Type: MAC Risk / Benefits Reviewed With: PT / POA / Parent / Guardian, Accepts Plan and Informed Consent Obtained History Surgery Operation Date: 10/12/24 08:20 Proposed Procedures p Cystoscopy, Right Retrograde Pyelogram and Stent Placement - Domenic Gill MD Height/Weight Height: 5 ft 6 in Weight: 62.2 kg Allergies Allergy/AdvReac Type Severity Reaction Status Date / Time morphine AdvReac Severe CAUSED Verified 10/12/24 09:50 SEVERE ANXIETY Iodinated Contrast Media AdvReac Mild Rash Verified 10/12/24 09:50 Medications Home Medications Medication Instructions Recorded Confirmed Last Taken cetirizine 10 mg tablet (Zyrtec) 10 mg PO HS 03/04/23 10/11/24 03/06/23 infliximab 100 mg intravenous 100 mg IV .Q6WKS 03/04/23 10/11/24 01/27/23 solution (Remicade) metoprolol succinate 25 mg 25 mg PO HS 03/04/23 10/11/24 09/20/24 tablet,extended release 24 hr ketorolac 10 mg tablet 10 mg PO TID PRN pain 5 days #15 03/12/23 10/11/24 03/15/23 tabs oxycodone 5 mg tablet 5 mg PO Q6H PRN pain #8 tabs 03/17/23 10/11/24 Unknown fluconazole 200 mg tablet 200 mg PO DAILY 1 day #1 tab 03/25/23 10/11/24 Unknown colestipol 1 gram tablet 2 g PO BID 09/12/24 10/11/24 Unknown oxybutynin chloride 5 mg tablet 5 mg PO DAILY #10 tabs 09/21/24 10/11/24 Unknown tamsulosin 0.4 mg capsule (Flomax) 0.4 mg PO DAILY #10 caps 09/21/24 10/11/24 Unknown Active Medications Generic Name Dose Route Start Last Admin Trade Name Freq PRN Reason Stop Dose Admin Enoxaparin Sodium 40 mg 10/11/24 20:00 10/11/24 20:08 Enoxaparin Inj 40 Mg/0.4 Ml Syr SQ 11/10/24 19:59 40 mg Q24H LOR Administration Hydromorphone HCl 0.5 mg 10/11/24 21:22 10/12/24 00:51 Hydromorphone Inj 0.5 Mg/0.5 Ml Syr IV 10/25/24 21:21 0.5 mg Q4H PRN Administration Moderate Pain (4,5,6) on NRS Ondansetron HCl 4 mg 10/11/24 21:22 10/11/24 21:44 Ondansetron Inj 2 Mg/Ml 2 Ml Vial IV 11/10/24 21:21 4 mg Q4H PRN Administration Nausea NPO Date Last Intake of Fluids: 10/11/24 Time Last Intake of Fluids: 14:00 Date Last Intake of Solids: 10/11/24 Time Last Intake of Solids: 19:00 Past Medical History Medical History Ureterolithiasis VSD (ventricular septal defect) 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 (unchanged compared to 05/2021 echo per report) Follows with [facility] cardio GERD (gastroesophageal reflux disease) Crohn's disease Anemia Hx iron infusions (most recent Fall 2021) Kidney stones Hx of supraventricular tachycardia 05/2022, no intervention needed per patient Follows with [facility] cardio History of COVID-2019 > symptoms resolved Exercise / Class Metabolic Activity II 4-5 Yardwork/Stairs/Walk up hill Past Surgical History Surgical History S/P cystoscopy with ureteral stent placement 03/07/23 @ [facility] [place] Nausea and vomiting after administration of anesthetic agent states does well w/ Fentanyl History of lithotripsy History of cystoscopy History of bilateral tubal ligation History of colonoscopy History of cholecystectomy History of appendectomy History of bowel resection x4 History of cardiac cath Several years ago > no stents Past Anesthesia History No Hx of Anesthesia Complications and No Family Hx of Anesthesia Complications History of PONV No Hx of PONV and No Hx of Motion Sickness Social History Smoking Status: Never smoker Do You Dip or Chew Tobacco: No Hx Alcohol Use: No Alcohol type: beer, wine and hard liquor alcohol intake frequency: holidays/special occasions only Hx Substance Use: No substance use type: does not use Review of Systems ROS Unobtainable: All systems reviewed & are unremarkable except as noted in HPI & below Physical Exam Vital Signs Last Vital Signs Temp 36.5 C 10/12/24 09:51 Pulse 86 10/12/24 09:51 Resp 20 10/12/24 09:51 BP 142/85 H 10/12/24 09:51 Pulse Ox 95 10/12/24 09:51 O2 Del Method Room Air 10/12/24 09:51 O2 Flow Rate 2 10/11/24 22:24 ENMT Mouth: no TMJ abnormality Thyromental Distance: > or= 3.5 Finger Breadths Mallampati Class: II Neck normal visual inspection and trachea midline; neck extension not limited Respiratory normal respiratory effort Auscultation: lungs clear to auscultation bilaterally Cardiovascular Rate/Rhythm: regular rate and regular rhythm Heart Sounds: no murmur Musculoskeletal Spine: normal cervical ROM Extremities: full ROM of extremities Neurologic moves all extremities Psychiatric Orientation: alert and oriented x 3 Testing Laboratory Results 10/12/24 06:43 10/12/24 06:43 Urine Color Yellow 10/12/24 00:38 Urine Appearance Clear (Clear) 10/12/24 00:38 Urine pH 5.5 (4.5-7.5) 10/12/24 00:38 Ur Specific [place] 1.020 (1.000-1.030) 10/12/24 00:38 Urine Protein Negative (Negative) 10/12/24 00:38 Urine Glucose (UA) Negative (Negative) 10/12/24 00:38 Urine Ketones Negative (Negative) 10/12/24 00:38 Urine Nitrite Negative (Negative) 10/12/24 00:38 Ur Leukocyte Esterase Negative (Negative) 10/12/24 00:38 Urine WBC (Auto) 6-10 /hpf (0-5) H 10/12/24 00:38 Urine RBC (Auto) 11-20 /hpf (0-2) H 10/12/24 00:38 U Hyaline Cast (Auto) 0-2 /lpf (0-2) 10/12/24 00:38 U Epithel Cells (Auto) 3-5 /hpf (0-2) H 10/12/24 00:38 Urine Bacteria (Auto) None Seen (None Seen) 10/12/24 00:38
[2024-10-12] MEDS: ceFAZolin 2000MG 2,000 MG/15 ML SYR IV SCH (11:36)
[2024-10-12] MEDS ORDERED: KETAMINE HCL 10MG/ML SYR ONE (11:44)
[2024-10-12] MEDS ORDERED: DEXAMETHASONE SOD INJ 4 MG/ML VIAL ONE (11:52)
[2024-10-12] MEDS: DIATRIZOATE MEGLUMINE 30% 100ML VIAL INSTIL PRN (11:58)
--- NOTE | 2024-10-12 12:03 | Operative Report ---
PG Post Operative Report Pre & Post Diagnosis Right ureteral calculus Operation Date: 10/12/24 08:20 <No data on this case meets the specified criteria> Right ureteral calculus I identified the patient and participated in the time-out.: Yes Procedure Cystoscopy, right retrograde pyelogram with radiographic interpretation, right ureteral stent Operation Date: 10/12/24 08:20 <No data on this case meets the specified criteria> Surgeon Domenic Gill MD Director Of Acquisition Marketing None Estimated Blood Loss 0 Findings See Below Moderate right hydro. Stent in good position Specimens None Drains 6x24 R stent Anesthesia Type MAC Complications none Indications 54-year-old female who is status post left ureteroscopy for stone treatment who developed right flank pain and was found to have an obstructing right ureteral calculus Description of Procedure After informed consent was obtained, the patient was transported operative suite. MAC anesthesia was induced. The patient was placed in dorsolithotomy position prepped and draped in a sterile fashion. They received preoperative ancef for antibiotic prophylaxis. An appropriate surgical timeout was performed. A 22 Maltese rigid scope was inserted per urethra into the bladder. Leonard cystoscopy revealed no stones or lesions. I turned my attention the right ureteral orifice and intubated this with a 5 Maltese open-ended catheter. A right retrograde pyelogram was shot which showed mild hydronephrosis. A sensor wire was advanced into the kidney and confirmed fluoroscopically. A 6 Maltese by 24 cm right ureteral stent was deployed with a good proximal coil in the renal pelvis and a good distal coil noted in the bladder, confirmed fluoroscopically and under direct visualization, respectively. This did not look like it slid down so used a grasper and externalized it, replaced the wire and then replaced the stent with a better coil in the renal pelvis. The bladder was emptied and the scope was removed. This concluded the end of the case. All counts were correct at the end of the case. I was present, scrubbed, and actively participated for the entirety of the procedure. I attest to the content of the Intraoperative Record and any orders documented therein. Any exceptions are noted below.
--- NOTE | 2024-10-12 12:20 | Fluoroscopy Report ---
FL retrograde includes kub CLINICAL HISTORY: ADD ON STENT COMPARISON STUDY: CT of the abdomen and pelvis October 11, 2024. FLUOROSCOPY TIME: 11 seconds. Ka,r: 1.97 mGy FLUOROSCOPIC IMAGES: 1 FINDINGS: Fluoroscopy was provided during right retrograde pyelogram and right ureteral stent placeme nt. IMPRESSION: Fluoroscopy provided during right retrograde pyelogram and right ureteral stent placemen t. ACT 112: Negative or not required by law. Electronically signed by: Dejon Crain M.D. 10/12/2024 12:17 PM
--- NOTE | 2024-10-12 12:39 | Anesthesiology Progress Note ---
Date of Service October 12, 2024 Anesthesia Post Procedure Vital Signs Vital Signs: Temp Pulse Pulse Pulse Resp BP BP 10/12/24 12:30 85 12 107/74 10/12/24 12:20 85 12 107/70 10/12/24 12:10 82 12 104/77 10/12/24 12:03 36.9 C 97 H 17 109/72 10/12/24 09:51 36.5 C 86 20 142/85 H 10/12/24 07:38 36.6 C 75 16 109/72 10/11/24 22:24 10/11/24 21:00 36.8 C 87 18 125/78 10/11/24 20:44 86 18 124/72 10/11/24 20:30 81 18 124/72 10/11/24 19:00 86 18 113/90 10/11/24 18:03 74 16 113/90 10/11/24 17:46 82 18 113/90 10/11/24 17:45 84 22 118/79 10/11/24 17:00 82 19 10/11/24 16:59 77 10/11/24 16:13 36.8 C 74 24 155/91 H Pulse Ox O2 Del Method O2 Flow Rate 10/12/24 12:30 94 Room Air 0 10/12/24 12:20 99 Oxymask 4 10/12/24 12:10 99 Oxymask 4 10/12/24 12:03 100 Oxymask 8 10/12/24 09:51 95 Room Air 10/12/24 07:38 96 Room Air 10/11/24 22:24 Nasal Cannula 2 10/11/24 21:00 93 Nasal Cannula 10/11/24 20:44 98 Nasal Cannula 2 10/11/24 20:30 99 Nasal Cannula 2 10/11/24 19:00 97 Nasal Cannula 2 10/11/24 18:03 80 L 10/11/24 17:46 97 Room Air 10/11/24 17:45 10/11/24 17:00 92 10/11/24 16:59 10/11/24 16:13 94 Room Air Pain Intensity Right Flank: Pain Intensity: 5 Transfer of Care Handoff Completed per policy Notes Mental Status: alert / awake / arousable Patient Amnestic to Procedure: Yes Nausea / Vomiting: adequately controlled Pain: adequately controlled Airway Patency, RR, SpO2: stable & adequate BP & HR: stable & adequate Hydration State: stable & adequate Anesthetic Complications: no major complications apparent and Pt Satisfied with anesthetic care
--- NOTE | 2024-10-12 13:05 | Discharge Summary ---
Discharge Summary Date of Service October 12, 2024 Principal Dx & Hospital Course #1 = Principal Diagnosis (1) Hydronephrosis due to obstruction of ureter: Right nephrolithiasis Mild to moderate right hydronephrosis and proximal ureteral dilation due to 5 x 9 right ureteral stone. Multiple bilateral nonobstructing kidney stones No GRETTA Urology consulted IVF, NPO, pain control s/p cystoscopy and stent placement with Dr Gill 10/12, plans for outpatient follow up next Thursday for lithotripsy. Vit D checked/low, PO replacement sent at discharge. Encouraged to avoid excessive tea consumption (does report she has cut back). Discussed w/ Urology TIFFANIE and no bacteria on UA and was given Ancef and DID NOT believe needed antibiotics at discharge. Sent new rx for Flomax, Oxybuytnin and Pyridium as well as toradol prn for pain (avoid other NSAIDs on such recommended). (2) Crohn's disease: Crohn's disease, on Remicade for >15 yrs. Has outpt f/u for MRI testing October 23, possible need to switch her treatment. Was given Rocephin x 1 on admission, Ancef w/ cysto and stent bu UA did not appear infected and Urology not feling abx needed at ca. Lovenox SQ provided for DVT proph (3) Hypoxia: Drop following Dilaudid in ER, no tachycardia or pleuritic pain (does have some R costal pain but reports told "costochondritis in the past). Has remained on RA Plan DVT prophylaxis: Lovenox while inpatient Dispo: s/p cysto and stent, discharged on pain control and plans for outpatient follow up for tx next Thursday with Urology Notes For Next Care Provider Encouraged to limit tea consumption, Vit D replacement ordered given repeat stone formation Medication Changes From Visit Toradol 10mg prn pain Oxybutynin/Pyridium prn spasm/stent pain Flomax 0.4mg HS renewed rx Vitamin D 25mcg PO daily Admission HPI Per Admitting Provider Jolly is a 54-year-old female with a past medical history of Crohn's disease on Remicade, hydroureteronephrosis due to nephrolithiasis, recent nephrolithiasis with left ureteroscopy for stone treatment 09/21/2024 and stent removal 09/23/2024 pending additional treatment for right-sided stones who presents to the ER with worsened right flank pain. Jolly is seen at the bedside. She reports that she has had return of nausea, vomiting, right lower posterior flank pain with some radiation to her epigastrium, and right abdomen similar to prior kidney stones over the last day. This feels much better after pain control in the ER. She has not had any dark urine or polyuria. She has had no fevers chills or sweats. Crohn's is well- controlled on Remicade, she has not had any flares and denies recent melena, hematochezia, or abdominal pain outside of her kidney stones. She has had some pain which is tender to palpation at her right lower rib and is reproducible on palpation otherwise denies chest pain/chest pressure. No dyspnea. She was slightly hypoxic following administration of of 1 mg of hydromorphone in the ER, she is not short of breath. Medical History: Reviewed Medications: Reviewed Surgical History: Reviewed Family history: Reviewed Allergies: Reviewed Social History: Reviewed Code Status: FUll Admission Exam Per Admitting Provider General: A&Ox3. NAD. Cooperative. HEENT: Atraumatic, normocephalic. Vision and hearing intact Pulm: CTAB A&P. -wheezes, -rales, -rhonchi. Symmetrical chest rise. No increased work of breathing. No respiratory distress. Cardiac: RRR, -mrg. Radial pulses intact and symmetrical. Abdominal: +RLQ TTP, +R CVA tenderness. +R lower costal margin TTP. Abdomen is without rebound/guarding Extremities: Warm and dry Discharge Exam General: 54yo female sitting up in bed following stent, mildly uncomfortable but NAD and daughter at bedside, reporting wanting to go home HEENT: head atraumatic, normocephalic, Resp: even/unlabored, no w/c/r, on room air CV: RRR, no significant m/r/g, no pitting edema GI: +BS, soft, slight tenderness R costal margin, +R CVA tenderness 2nd to stent no guarding/rebound no anglin MSK/Neuro: nonfocal, no slurred speech, not confused Psych: AOx3, cooperative with exam Discharge Plan Discharge Items Patient Disposition: Home - Self-Care Reason For Visit: R HYDRO 2/2 STONE Discharge Diagnosis: Rided sided pain due to kidney stone Goals: You have been hospitalized for an urgent problem which required surgery. During your stay at [facility], we have made an effort to correct the problem that brought you to the hospital while keeping you as comfortable as possible. Surgery and medications were used to bring your condition under control and your discharge instructions will include directions for any medications you should take after leaving the hospital. Please make sure to follow the advice of your surgeon regarding follow up with the surgeon and with your primary care provider. Activity: As commented below Non-emergency contact: Primary Care Provider and Urologist Call non-emergency contact if: you have any medication questions, your symptoms worsen, your pain is not controlled, your pain is worsening and you have a fever Follow-up/Referrals: Lluvia Cruz PA-C [Primary Care Provider] - (Tori from office, will call the patient with a hospital follow up visit 7-10 days ) Domenic Gill MD [Physician] - 10/19/24 Diet: Regular Addtl Attending Provider Instructions: You have been hospitalized for right sided pain, likely from kidney stones. Urology was consulted and you were taken for a stent and they are arranging for outpatient follow up for treatment on Thursday next week. You should continue oral hydration as well as Flomax and pain control with oxybutynin for stent discomfort and pyridium for bladder spasms. We have also resent prescription for toradol which is an NSAID and should avoid ibuprofen or aleve while taking this medication. Your vitamin D level was a little low, which can contribute to formation of kidney stones and we have sent you on oral replacement and can follow up with pr imary care for ongoing supplementation. You were provided with IV antibiotic in the operative period but was discussed with Urology and you DO NOT need ongoing antibiotics at discharge and urine samp le was without bacteria. Please return to the ER with any fever/chills, worsening pain, inability to tolerate oral intake or for any other symptoms concerning for you. Please follow up with Urology as outlined as well as primary care to monitor your progress since hospitalization. Take care! Pending Studies at Discharge: No Stand-Alone Forms: [facility], Smoking Cessation Medications and DC Order Prescriptions: New cholecalciferol (vitamin D3) [Vitamin D3] 25 mcg (1,000 unit) tablet 25 mcg PO DAILY 30 Days Qty: 30 0RF phenazopyridine [Pyridium] 100 mg tablet 100 mg PO TID PRN (Reason: bladder pain) Qty: 14 0RF Continued fluconazole 200 mg tablet 200 mg PO DAILY 1 Days Qty: 1 0RF cetirizine [Zyrtec] 10 mg Tablet 10 mg PO HS infliximab [Remicade] 100 mg Recon Soln 100 mg IV .Q6WKS Patient Comments: EVERY 6 WEEKS metoprolol succinate 25 mg Tablet Extended Release 24 Hr 25 mg PO HS oxycodone 5 mg tablet 5 mg PO Q6H PRN (Reason: pain) Qty: 8 0RF colestipol 1 gram tablet 2 g PO BID ketorolac 10 mg tablet 10 mg PO TID PRN (Reason: pain) 5 Days Qty: 15 0RF tamsulosin [Flomax] 0.4 mg capsule 0.4 mg PO DAILY Qty: 30 0RF Changed oxybutynin chloride 5 mg tablet 5 mg PO DAILY PRN (Reason: ureteral spasm) Qty: 10 0RF Discharge Orders: Discharge Order (Routine); Ordered 10/12/24 Ordered By: Bev Eng Admission Data Admit Date/Time: 10/11/24 19:18 Attending Provider: Jose Alejandro Anderson Admit Provider: Ventura Bowser Primary Care Provider: Lluvia Cruz Other Providers: Ventura Bowser; Clarke Calrisle Other Interventions: Discharge Summary Assessment (RN) Last Done: 10/12/24 13:52 Hospital Stay Data Consultations 10/11/24 19:00 ED Decision to Admit Stat 10/11/24 19:18 Consult Urology Routine Procedures Performed Operation Date: 10/12/24 08:20 Actual Procedures p Cystoscopy, Right Retrograde Pyelogram and Stent Placement(Right) - Domenic Gill MD Diagnostic Imagining Performed Abdomen/Pelvis CT 10/11/24 16:26 EXAM: CT Abdomen and Pelvis Without Intravenous Contrast INDICATION: Right flank pain. TECHNIQUE: Axial computed tomography images of the abdomen and pelvis without intravenous contrast. Sagittal and coronal reformatted images were created and reviewed. This CT exam was performed using one or more of the following dose reduction techniques: automated exposure control, adjustment of the mA and/or kV according to patient size, and/or use of iterative reconstruction technique. COMPARISON: 08/05/2024 FINDINGS: Limitations: None. Lung bases: There is mild groundglass opacity in the left lower lobe abutting the major fissure. Minimal atelectasis in the right lower lobe. Pleural space: No basilar pleural effusion. Heart: No abnormality noted. Mediastinum: No abnormality noted. ABDOMEN: Liver: Lack of intravenous contrast limits detection of some masses. No abnormality noted. Gallbladder and bile ducts: Cholecystectomy. No ductal dilation or stone noted. Pancreas: No pancreatic mass, calcification, inflammation or ductal dilation noted. Spleen: No significant abnormality noted. Adrenals: No significant abnormality noted. Kidneys and ureters: There is mild to moderate right hydronephrosis and dilatation of the proximal right ureter. There is a 5 x 9 mm right ureteral stone at the level of L4. There are innumerable stones within the bilateral renal parenchyma with the stone burden significantly greater on the right. Largest right-sided stone measures up to 7 mm and left 5 mm. No urinary gas. No perinephric fluid. Stomach and bowel: There is partial right colectomy. Staple line and patulous loop of sigmoid colon noted. There is stable mild thickening of the rectum. No obstruction. Left colonic diverticulosis noted. PELVIS: Appendix: Appendectomy. Bladder: Appears normal for the degree of filling. No stones or inflammation. No large mass. Masses may not be detected in the absence of opacification. Reproductive: No abnormalities noted. ABDOMEN and PELVIS: Intraperitoneal space: No free air. No significant fluid collection. Bones/joints: No acute changes. Soft tissues: Umbilical hernia containing fat. Vasculature: No abdominal aortic aneurysm. Lymph nodes: No pathologically enlarged lymph nodes. IMPRESSION: 1. Mild to moderate right hydronephrosis and proximal ureteral dilatation to a 5 x 9 mm right ureteral stone at the level of L4. Impression multiple bilateral nonobstructing kidney stones present. 2. Stable proctitis. ACT 112: Negative or not required by law. Electronically signed by Tere Durham 10-11-2024 6:18 PM Retrograde Pyelogram 10/12/24 00:00 FL retrograde includes kub CLINICAL HISTORY: ADD ON STENT COMPARISON STUDY: CT of the abdomen and pelvis October 11, 2024. FLUOROSCOPY TIME: 11 seconds. Ka,r: 1.97 mGy FLUOROSCOPIC IMAGES: 1 FINDINGS: Fluoroscopy was provided during right retrograde pyelogram and right ureteral stent placement. IMPRESSION: Fluoroscopy provided during right retrograde pyelogram and right ureteral stent placement. ACT 112: Negative or not required by law. Electronically signed by: Dejon Crain M.D. 10/12/2024 12:17 PM Pending Results Patient Have Any Pending Studies at Discharge: No Discharge Instructions Given to Patient (Per Discharging Provider) You have been hospitalized for right sided pain, likely from kidney stones. Urology was consulted and you were taken for a stent and they are arranging for outpatient follow up for treatment on Thursday next week. You should continue oral hydration as well as Flomax and pain control with oxybutynin for stent discomfort and pyridium for bladder spasms. We have also resent prescription for toradol which is an NSAID and should avoid ibuprofen or aleve while taking this medication. Your vitamin D level was a little low, which can contribute to formation of kidney stones and we have sent you on oral replacement and can follow up with primary care for ongoing supplementation. You were provided with IV antibiotic in the operative period but was discussed with Urology and you DO NOT need ongoing antibiotics at discharge and urine sample was without bacteria. Please return to the ER with any fever/chills, worsening pain, inability to tolerate oral intake or for any other symptoms concerning for you. Please follow up with Urology as outlined as well as primary care to monitor your progress since hospitalization. Take care! Supervising Physician Co-Signing Physician Notes The patient was not seen by me. The chart was reviewed. Case discussed with YRIS Will. Agree with assessment and plan Total Time Total Time Spent Total Time Spent (In Minutes): 35 Coding Level of Care Code 71769 INP/OBS DISCH >30 MIN Diagnoses Hydronephrosis due to obstruction of ureter N13.1 Crohn's disease K50.90 Hypoxia R09.02
[2024-10-12 13:08] VITALS: TEMP 98.2
[2024-10-12 13:38] VITALS: BP 129/83; RESP 17; O2SAT 94
[2024-10-12 13:53] VITALS: PULSE 82
[2024-10-12] MEDS: PHENAZOPYRIDINE HCL 200 MG TAB PO STA (14:46)
[2024-10-12] MEDS: SODIUM CHLORIDE 0.9% 500 ML IV SCH (14:46)
[2024-10-12] MEDS ORDERED: METOPROLOL SUCC 25MG EXT REL TAB PO SCH (21:00)
[2024-10-12] MEDS ORDERED: TAMSULOSIN HCL 0.4 MG CAP PO SCH (21:00)
== END 2024-10-12 15:19 | disposition home or self-care (01) | DRG 661 ==
LOC: ED 16:10 → 3W 19:18 → INTOOBSV 19:18 → SUATTDRO 19:18 → 3W 20:44